=== PATIENT | female | born 1960 | race Two or more races ===

== ENCOUNTER 2020-12-10 09:25 | Outpatient (REF) | payer OTHER, SELFPAY ==
[2020-12-10 09:58] LABS: MANUAL DIFF FLAG NO
[2020-12-10 10:03] LABS: Basophils Percent Auto 0.5 % (0-2); Eosinophils Absolute Auto 0.1 X10*3/uL (0.0-0.4); Eosinophils Percent Auto 1.3 % (0-4); Hematocrit 40.7 % (37-47); Imm Gran Abs Auto 0.01 X10*3/uL (0.00-0.03); Imm Gran Pct Auto 0.2 % (0.0-0.4); Lymphocytes Absolute Auto 2.4 X10*3/uL (1.2-4.9); Mean Corpuscular HGB Conc 34.4 g/dl (31.0-35.0); Mean Corpuscular Hemoglobin 30.8 pg (27.0-33.0); Mean Corpuscular Volume 89.5 fL (80-98); Mean Platelet Volume 10.3 fL (9.4-12.3); Monocytes Absolute Auto 0.3 X10*3/uL (0.1-1.2); Monocytes Percent Auto 6.2 % (2-11); Neutrophils Absolute Auto 2.7 X10*3/uL (2.0-8.3); Neutrophils Percent Auto 48.8 % (45-73); Platelet Count 235 X10*3/uL (160-400); Red Blood Count 4.55 X10*6/uL (4.20-5.50); Red Cell Distribution Width 13.2 % (11.0-16.0); White Blood Count 5.5 X10*3/uL (4.8-10.8)
[2020-12-10 10:36] LABS: Alanine Aminotransferase 23 U/L (0-31); Albumin Level 4.5 g/dL (3.5-5.0); Alkaline Phosphatase 75 U/L (39-117); Anion Gap 12 (12-20); Aspartate Amino Transferase 16 U/L (5-31); Bilirubin Total 0.7 mg/dL (0.0-1.0); Blood Urea Nitrogen 14 mg/dL (9-16); Carbon Dioxide 28 mmol/L (22-29); Chloride 105 mmol/L (96-108); Cholesterol 267 mg/dL; Estimated Glomerular Filt Rate > 60; Glucose Fasting 135 mg/dL (60-99); HDL Cholesterol 41 mg/dL; LDL Cholesterol Calculated 162 mg/dl; Potassium 4.4 mmol/L (3.3-5.1); Sodium 141 mmol/L (135-145); Total Protein 7.3 g/dL (6.5-8.0); Triglycerides 323 mg/dL
[2020-12-10 10:57] LABS: Estimated Average Glucose 120 mg/dL; Hemoglobin A1c % 5.8 %
[2020-12-10 10:58] LABS: Thyroid Stimulating Hormone 3.85 uIU/mL (0.32-4.0)
== END 2020-12-10 09:26 | disposition home or self-care (01) ==
LOC: HO.LAB 09:25
PROVIDERS: Visit Provider Internal Medicine
DX: Z00.00 Encounter for general adult medical examination without abnormal findings (principal); E11.9 Type 2 diabetes mellitus without complications; E03.9 Hypothyroidism, unspecified
CPT/HCPCS: 36415; 80053; 80061; 83036; 84443; 85025

== ENCOUNTER 2021-05-05 10:15 | Outpatient (REF) | payer OTHER, SELFPAY ==
--- NOTE | ~2021-05-05 | XR_ITS ---
EXAMINATION: XR CHEST CLINICAL INFORMATION: Pleurodynia. COMPARISON: None TECHNIQUE: 2 views of the chest were obtained. FINDINGS: The lungs are clear. The cardiomediastinal silhouette is normal in size. There is no pleural effusion or pneumothorax. No acute osseous abnormality. XR/XR chest 2V IMPRESSION: No acute cardiopulmonary findings.
[2021-05-05 11:37] LABS: Cholesterol 268 mg/dL; HDL Cholesterol 44 mg/dL; Triglycerides 453 mg/dL
== END 2021-05-05 10:16 | disposition home or self-care (01) ==
LOC: HO.LAB 10:15
PROVIDERS: PCP Internal Medicine; Visit Provider Internal Medicine
DX: R07.81 Pleurodynia (principal); E11.9 Type 2 diabetes mellitus without complications
CPT/HCPCS: 36415; 71046; 80061

== ENCOUNTER → 2021-05-10 09:14 | Outpatient (BNVA) | payer OTHER, SELFPAY | PROVIDERS: PCP Internal Medicine Geriatric Medicine; Visit Provider Physician Assistant | DX: Z13.89 Encounter for screening for other disorder (principal) | CPT/HCPCS: 99203 ==

== ENCOUNTER 2021-05-12 10:27 | Outpatient (RCR) | payer OTHER, SELFPAY ==
--- NOTE | 2021-05-17 09:57 | MHC.PT.EP ---
[facility] [place] Office [place] [facility] [place] Office [address] [phone] F: [phone] F: [phone] F: [phone] F: [phone] Physical Therapy Plan of Care Date of Evaluation: Date of Surgery: Diagnosis: This is a 60 yo female presenting to skilled PT with a script for lumbar strain + L lat/chest wall strain Assessment: This is a 60 yo female presenting to skilled PT with a script for lumbar strain + L lat/chest wall strain. The patient reports that her pain started after she feel down 4 stairs at work on 05/03. She tried to grab the rail on the L and landed on her buttocks. Pain is located at the low back and across (L side is worse than R). She also has L side thoracic pain as well. This is described as constant and achy. She has been taking for naproxen and ice. Prior to the fall she had no back pain. She is still working and is now being seen by work connection (last appointment was yesterday). Patient was 45 mins late to appointment and was unable to be assessed at this time. Will continue assessment next session. Edit 05/17 patient called and cancelled her second visit and then will be going on vacation so not returning to our clinic until 05/31. Frequency and Duration: The patient will be seen 2x/wk for 6wks Short Term Goals: I in HEP Demo good squat mechanics without cuing from PT Demo ability to lay supine and sit with neutral posture Demo ability to perform appropriate transfers without cues Fdc Goals: Demos functional ROM and strength Improve oswestry by at least 10 points Improve pain at the worst to no more than 2/10 Demo proper lifting techniques without increase in pain or radiating symptoms Return to work in full Treatment Plan: Modalities to reduce pain, spasms and effusion. Manual therapy to restore motion and function. Therapeutic exercise to improve strength and flexibility. Neuromuscular re-education for posture and balance. Therapeutic activities to return to functional activities of daily living. Electronically signed by: Kia Cobb PT Please sign and return to therapist. Thank you for your referral.
--- NOTE | 2021-05-31 11:40 | MHC.PT.DC ---
[facility] [place] Office [place] Office [place] [facility] [address] [phone] F: [phone] F: [phone] F: [phone] F: [phone] Physical Therapy Discharge Report Diagnosis: This is a 60 yo female presenting to skilled PT with a script for lumbar strain + L lat/chest wall strain Date of Surgery: Date of Evaluation: 05/12/21 Date of Discharge: 05/31/21 Treatments to Date: 1 Cancellations to Date: 0 No Shows to Date: 0 Discharge Status: Visit Non-compliance Discharge Summary: This is a 60 yo female presenting to skilled PT with a script for lumbar strain + L lat/chest wall strain. The patient reports that her pain started after she feel down 4 stairs at work on 05/03. She tried to grab the rail on the L and landed on her buttocks. Pain is located at the low back and across (L side is worse than R). She also has L side thoracic pain as well. This is described as constant and achy. She has been taking for naproxen and ice. Prior to the fall she had no back pain. She is still working and is now being seen by work connection (last appointment was yesterday). Patient was 45 mins late to appointment and was unable to be assessed at this time. Will continue assessment next session. Patient proceeded to cancel and no show to remaining visits. DC due to visit noncompliance and per attendance policy. Electronically signed by: Kia Cobb PT Please sign and return to therapist. Thank you for your referral.
== END 2021-05-31 11:40 | disposition home or self-care (01) ==
LOC: HO.PTCHIC 10:27
PROVIDERS: PCP Internal Medicine Geriatric Medicine; Visit Provider Physician Assistant
DX: M54.5 Low back pain (principal); S29.011D Strain of muscle and tendon of front wall of thorax, subsequent encounter
CPT/HCPCS: 97110; 97162

== ENCOUNTER 2022-08-18 09:15 | Outpatient (REF) | payer OTHER, SELFPAY ==
[2022-08-18 11:48] LABS: Alanine Aminotransferase 24 U/L (0-31); Albumin Level 4.6 g/dL (3.5-5.0); Alkaline Phosphatase 78 U/L (39-117); Anion Gap 15 (12-20); Aspartate Amino Transferase 20 U/L (5-31); Bilirubin Total 0.8 mg/dL (0.0-1.0); Blood Urea Nitrogen 16 mg/dL (9-16); Calcium 9.2 mg/dL (8.4-10.2); Carbon Dioxide 29 mmol/L (22-29); Chloride 103 mmol/L (96-108); Cholesterol 274 mg/dL; Estimated Glomerular Filt Rate > 60; Glucose Fasting 143 mg/dL (60-99); HDL Cholesterol 38 mg/dL; LDL Cholesterol Calculated 172 mg/dl; Potassium 4.5 mmol/L (3.3-5.1); Sodium 142 mmol/L (135-145); Total Protein 7.3 g/dL (6.5-8.0); Triglycerides 323 mg/dL
== END 2022-08-18 09:16 | disposition home or self-care (01) ==
LOC: HO.HMGCLDS 09:15
PROVIDERS: PCP Internal Medicine; Visit Provider Internal Medicine
DX: E74.39 Other disorders of intestinal carbohydrate absorption (principal); E78.5 Hyperlipidemia, unspecified
CPT/HCPCS: 36415; 80053; 80061

== ENCOUNTER → 2022-08-22 15:59 | Outpatient (REF) | payer OTHER, SELFPAY ==
--- NOTE | 2022-08-22 16:02 | CA_ITS ---
Transthoracic Echocardiogram Patient (Last, First, Middle): Lula Little I Gender: Female Date of : 1960 Age: 61 Procedure Date: 08/22/2022 Procedure Type: Transthoracic Echocardiogram Location: OP Height: 160.02 cm Weight: 63.5 kg BSA: 1.66 m2 Heart Rate: bpm BP: 122 / 66 mmHg Professor Of Fine Art: Referring MD: Shanita Moncada MD Symptoms: R01.1 - Cardiac murmur, unspecified Study Quality: Adequate ECG Rhythm: Sinus Conclusions: - The left ventricular systolic function is normal. The calculated ejection fraction is 62% by biplane method. - No obvious valvular pathology seen on this study. Findings Left Ventricle Normal left ventricular cavity size. There is normal left ventricular wall thickness. The left ventricular systolic function is normal. The calculated ejection fraction is 62% by biplane method. There is no evidence of regional wall motion abnormalities. Diastolic function is normal for age. Right Ventricle Normal right ventricular cavity size and systolic function. Atria Both atria are normal in size. Aortic Valve There is a normal trileaflet aortic valve. There is no aortic valve stenosis. There is no aortic valve regurgitation. Mitral Valve The mitral valve appears normal. There is no mitral valve regurgitation. There is no mitral valve stenosis. Pulmonic Valve The pulmonic valve is likely normal. Tricuspid Valve Normal tricuspid valve structure. There is trace tricuspid valve regurgitation. There is no evidence of pulmonary hypertension. Great Vessels The aortic annulus, sinuses of valsalva, and asc aorta are normal in size. Venous The inferior vena cava is normal in size and collapses greater than 50% with inspiration. Pericardium/Pleural There is no evidence of pericardial effusion. Prior Study Comparison No prior study available for comparison. Recommendations, Care & Conclusions No obvious valvular pathology seen on this study. Measurements 2D Linear Measurements Ao Root: 2.90 2.1-3.5 cm LVOT Diam: 2.00 3.0+(-)1.3 cm 2D Systolic Function EF 4C: 55.90 >55% EF 2C: 69.40 >55% EF BiP: 62.00 >55% Mitral Valve MV Pk E: 0.58 MV PK A: 0.96 MV Decel Time: 247.00 E/A: 0.60 E'Lateral: 8.92 E'Medial: 7.62 E/E' Med: 7.60 E/E' Lat: 6.50 PHT: 72.00 MVA PHT: 3.06 Decel [place]: 2.35 Aortic Valve AoV Pk Thien: 1.15 AoV Mn Thien: 0.69 AoV VTI: 0.22 AoV Pk Grad: 5.00 Aov Mn Grad: 2.00 DUNCAN Cont.VTI: 2.90 LVOT LVOT Pk Thien: 1.01 LVOT Mn Thien: 0.64 LVOT VTI: 0.20 LVOT Pk Grad: 4.00 LVOT Mn Grad: 2.00 LVOT Diam: 2.00 LVOT Area: 3.14 Diastolic Function MV Pk E: 0.58 MV Pk A: 0.96 E/A: 0.60 E'Medial: 7.62 E/E' Med: 7.60 E' Laterial: 8.92 E/E' Lat: 6.50 Right Ventricle TAPSE (mm): 19.00 TVS' Thien: 7.00 Tricuspid Valve TR Pk Thien: 1.62 TR Pk Grad: 10.00 RA Press: 3.00 RVSP: 13.00 Great Vessels Aorta Ao Root-2D: 2.90 2.0-3.7 cm Ao Asc: 2.70 2.1-3.4 cm Pulmonary Valve PV Pk Thien: 0.80 Peak PV Grad: 3.00 Updated in Other Vendor System with Status of Final Ino López MD electronically signed on 08/23/2022 9:28:03 AM with status of Final
== END ==
LOC: HO.CARD 15:59
PROVIDERS: PCP Internal Medicine; Visit Provider Internal Medicine
DX: R01.1 Cardiac murmur, unspecified (principal)
CPT/HCPCS: 93306

== ENCOUNTER 2023-03-10 08:45 | Outpatient (REF) | payer OTHER, SELFPAY ==
[2023-03-10 11:07] LABS: MANUAL DIFF FLAG NO
[2023-03-10 11:12] LABS: Basophils Absolute Auto 0.1 X10*3/uL (0.0-0.2); Basophils Percent Auto 0.9 % (0-2); Eosinophils Absolute Auto 0.1 X10*3/uL (0.0-0.4); Eosinophils Percent Auto 1.8 % (0-4); Hematocrit 39.2 % (37.0-47.0); Hemoglobin 13.4 g/dl (12.0-16.0); Imm Gran Abs Auto 0.02 X10*3/uL (0.00-0.03); Imm Gran Pct Auto 0.3 % (0.0-0.4); Lymphocytes Absolute Auto 2.9 X10*3/uL (1.2-4.9); Lymphocytes Percent Auto 41.9 % (20-40); Mean Corpuscular HGB Conc 34.2 g/dl (31.0-35.0); Mean Corpuscular Hemoglobin 30.6 pg (27.0-33.0); Mean Corpuscular Volume 89.5 fL (80.0-98.0); Mean Platelet Volume 10.3 fL (9.4-12.3); Monocytes Absolute Auto 0.4 X10*3/uL (0.1-1.2); Neutrophils Absolute Auto 3.4 x10*3/uL (2.0-8.3); Neutrophils Percent Auto 49.1 % (45-73); Platelet Count 275 X10*3/uL (160-400); Red Blood Count 4.38 X10*6/uL (4.20-5.50); Red Cell Distribution Width 13.6 % (11.0-16.0); White Blood Count 6.9 X10*3/uL (4.8-10.8)
[2023-03-10 11:32] LABS: Alanine Aminotransferase 23 U/L (0-31); Albumin Level 4.4 g/dL (3.5-5.0); Alkaline Phosphatase 63 U/L (39-117); Anion Gap 10 (12-20); Aspartate Amino Transferase 17 U/L (5-31); Bilirubin Total 1.1 mg/dL (0.0-1.0); Blood Urea Nitrogen 15 mg/dL (9-16); Calcium 9.4 mg/dL (8.4-10.2); Carbon Dioxide 31 mmol/L (22-29); Chloride 105 mmol/L (96-108); Cholesterol 223 mg/dL; Estimated Glomerular Filt Rate > 60; Glucose Fasting 132 mg/dL (60-99); HDL Cholesterol 40 mg/dL; LDL Cholesterol Calculated 128 mg/dl; Potassium 4.3 mmol/L (3.3-5.1); Sodium 142 mmol/L (135-145); Total Protein 6.8 g/dL (6.5-8.0); Triglycerides 276 mg/dL
[2023-03-10 12:39] LABS: Folate 17.7 ng/mL (> or = 4.0); TSH reflex Free T4 2.28 uIU/mL (0.32-4.0); Vitamin B12 > 2000 pg/mL (200-900); Vitamin D 25-OH Total 58.9 ng/mL (>30)
== END 2023-03-10 08:46 | disposition home or self-care (01) ==
LOC: HO.HMGCLDS 08:45
PROVIDERS: PCP Internal Medicine; Visit Provider Nurse Practitioner Family
DX: E11.9 Type 2 diabetes mellitus without complications (principal); E78.5 Hyperlipidemia, unspecified; R51.9 Headache, unspecified
CPT/HCPCS: 36415; 80053; 80061; 82306; 82607; 82746; 84443; 85025

== ENCOUNTER 2023-03-12 08:54 | Outpatient (REF) | payer OTHER, SELFPAY ==
[2023-03-15 04:09] LABS: TS Negative Control Passed; TS Panel A 0; TS Panel B 0; TS Positive Control Passed; TSpotTB Negative (Negative)
== END 2023-03-12 08:55 | disposition home or self-care (01) ==
LOC: HO.HMGCLDS 08:54
PROVIDERS: PCP Internal Medicine; Visit Provider Nurse Practitioner Family
DX: Z11.1 Encounter for screening for respiratory tuberculosis (principal)
CPT/HCPCS: 36415; 86481

== ENCOUNTER 2023-04-25 13:08 | Outpatient (REF) | payer OTHER, SELFPAY ==
--- NOTE | ~2023-04-25 | MM_ITS ---
EXAMINATION: MM SCREENING DIGITAL BREAST TOMOSYNTHESIS, BILATERAL CLINICAL INFORMATION: Screening. Asymptomatic. The lifetime risk of breast cancer based on the Tyrer-Cuzick Model is 4%. COMPARISON: Mammography: This study is compared with prior exams dating back to 2017. TECHNIQUE: Digital breast tomosynthesis is performed in both the craniocaudal and mediolateral oblique views along with computer-aided detection (CAD). Synthesized 2D images are generated from the tomosynthesis. FINDINGS: There are scattered areas of fibroglandular density (ACR BI-RADS breast composition Category b). There are no significant masses, abnormal calcifications, or other abnormalities. MM/MM tomosynthesis screening BI IMPRESSION: No mammographic evidence of malignancy. ASSESSMENT: BI-RADS BI-RADS 1 - Negative RECOMMENDATION: Routine annual mammography screening. 1 year F/U This examination should not preclude the clinical evaluation of a suspicious palpable abnormality. This patient's information was entered into a reminder system with a target due date for their next mammogram.
== END 2023-04-25 13:09 | disposition home or self-care (01) ==
LOC: HO.MAMMO 13:08
PROVIDERS: PCP Internal Medicine; Visit Provider Nurse Practitioner Family
DX: Z12.31 Encounter for screening mammogram for malignant neoplasm of breast (principal)
CPT/HCPCS: 77063; 77067

== ENCOUNTER → 2023-04-25 13:15 | Outpatient (BNV) | payer OTHER, SELFPAY | PROVIDERS: PCP Internal Medicine; Visit Provider Radiology Diagnostic Radiology | DX: Z12.31 Encounter for screening mammogram for malignant neoplasm of breast (principal) | CPT/HCPCS: 77063; 77067 ==

== ENCOUNTER 2023-06-04 12:59 | Outpatient (REF) | payer OTHER, SELFPAY ==
--- NOTE | ~2023-06-04 | CT_ITS ---
EXAMINATION: CT HEAD WITHOUT CONTRAST CLINICAL INFORMATION: Headache COMPARISON: None available. TECHNIQUE: Contiguous axial imaging was performed from the skull base to vertex without intravenous administration of contrast. This CT examination was performed using dose optimization techniques as appropriate, variously including the following: *Automated exposure control *Adjustment of mA and/or kV according to patient size (this includes techniques or standardized protocols for targeted exams where dose is matched to indication/reason for exam; i.e. extremities or head) *Use of iterative reconstruction technique DLP: 641 mGy-cm FINDINGS: There is no evidence of an extra-axial collection. There is no evidence of intra or extra-axial hemorrhage. The ventricles and extra-axial CSF spaces are appropriate. Torres-white matter adjacent normal. No mass, mass effect or infarct. There is sinus disease in the left maxillary and sphenoid sinus. Visualized paranasal sinuses, mastoid air cells and middle ears are otherwise clear. CT/CT head/brain wo IV con IMPRESSION: No acute intracranial findings. Sinus disease.
== END 2023-06-04 13:00 | disposition home or self-care (01) ==
LOC: HO.CT 12:59
PROVIDERS: PCP Internal Medicine; Visit Provider Nurse Practitioner Family
DX: R51.9 Headache, unspecified (principal)
CPT/HCPCS: 70450

== ENCOUNTER 2023-06-14 17:14 | Outpatient (AMB) | payer OTHER, SELFPAY ==
[2023-06-14 17:21] VITALS: BP 120/82; BMI 24.7
--- NOTE | 2023-06-14 17:21 | A.OFFPC_ITS ---
Vital Signs 06/14/23 17:21 Height 5 ft 2 in Weight 135 lb BMI 24.7 BP 120/82 Blood Pressure Location Lt brachial Position Sitting Intake Visit Reasons: HLD, DM Intake Note: Patient here for HLD, DM Otorhinolaryngologist Required: No Accompanied by: Self / Same As Patient Allergies acetaminophen [From Percocet] Allergy (Mild, Verified 06/14/23 17:30) Rash oxycodone [From Percocet] Allergy (Mild, Verified 06/14/23 17:30) Rash Medication List - Last Reconciled 06/14/23 by Shanita Moncada MD ezetimibe (Zetia) 10 mg PO DAILY glipizide ER 2.5 mg PO DAILY Tobacco use date assessed: 03/09/23 Fall risk assessment: No Falls in past year Last assessed Fall Risk: 06/14/23 Dental Screening Dental Screen Date: 06/14/23 Did you have a dental visit in the last 12 months?: Yes Did you have a dental problem in the last 6 months where you did not have access to dental care?: No Was dental information given to patient?: Patient has dentist HPI HPI Comments History of Present Illness Details This is a 62 year old female with diabetes mellitus type 2 and hyperlipidemia that complaints of headaches in either left or right frontal area. A1c within goal. Last LDL was not on goal and this john be repeated. No chest pain or shortness of breath. She also has chronic sinusitis and will give antihistamines for that. [facility] Medical History (Updated 06/15/23 @ 13:47 by Shanita Moncada MD) Glucose intolerance Hyperlipidemia Surgical History History of hysterectomy Family History Father CAD (coronary artery disease) Mother CAD (coronary artery disease) Social History Housing: Apartment Alcohol intake: never Patient Tobacco Use Status: Never used Tobacco e-Cigarette/Vaping Use: Never Used Second Hand Smoke Exposure: No service: No Current occupational status: disabled Cognitive needs: No Hearing needs: No Vision needs: Yes Questionnaire Thrive Questionnaire Date Thrive assessed: 03/09/23 FRANCIS-7 AMB Questionnaire FRANCIS-7 Date FRANCIS - 7 assessed: 03/09/23 Source: Developed by Drs. Chapincito Cruz, Mary Rodriguez, Aditya Akins and colleagues, with an educational justine from [employer]. Review of Systems Const All systems reviewed & are unremarkable except as noted in HPI and below Eyes Reports no additional complaints, Denies change in vision and Denies other visual disturbances Card Denies chest pain at rest, Denies chest pain with activity, Denies edema, Denies irregular heart rhythm, Denies claudication, Denies dyspnea, Denies dyspnea on exertion, Denies orthopnea, Denies paroxysmal nocturnal dyspnea and Denies slow heart rate Resp Denies cough, Denies dyspnea and Denies dyspnea on exertion GI Denies abdominal pain, Denies change in bowel habits, Denies excessive flatus, Denies nausea and Denies vomiting Denies urinary incontinence, Denies urinary hesitancy and Denies urinary urgency Musc Denies abnormal gait, Denies atrophy, Denies deformity and Denies limited range of motion Skin/Breast Denies bleeding lesions, Denies changing lesions and Denies rash Neuro Denies abnormal gait and Denies lack of coordination Physical exam (Primary Care) Vital Signs: Last Vital Signs BP 120/82 06/14/23 17:21 BMI result Body Mass Index 24.7 Tobacco/Smoking Status: Tobacco use Status Tobacco use date assessed 03/09/23 06/14/23 17:25 Patient Tobacco Use Status Never used Tobacco 06/14/23 17:25 e-Cigarette/Vaping Use Never Used 06/14/23 17:25 Thrive Assessment: Date of Thrive Assessment Date Thrive assessed 03/09/23 06/14/23 17:25 Eyes General: appearance normal, both eyes and all related structures Eyelids: Yes eyelids normal Conjunctivae: conjunctivae normal Neck Neck: Yes normal visual inspection and Yes supple Resp Effort & Inspection: normal respiratory effort Auscultation: clear to auscultation bilaterally Cardio Jugular venous distension: no JVD Rate: regular rate Rhythm: regular rhythm Heart sounds: S1 normal heart sound present and S2 normal heart sound present Extrem General: Yes full ROM Results AMB Hemoglobin A1c AMB Hemoglobin A1c 5.9 % Last Edit by MARIBELL Monsalve on 06/14/23 17:4 0 Results Reviewed Results Reviewed: Laboratory Last Values Hgb A1c (Clinic) 5.9 % (4.0-6.0) 06/14/23 17:37 Assessment and Plan Assessment & Plan (1) Diabetes mellitus: Code(s): E11.9 - Type 2 diabetes mellitus without complications Plan: Continue glipizide. A1c goal is equal or less than 7%. (2) Hyperlipidemia LDL goal <70: Code(s): E78.5 - Hyperlipidemia, unspecified Plan: Continue Zetia. LDL goal is less than 70 (3) Headache: Code(s): R51.9 - Headache, unspecified Plan: Start sumatiptan prn. (4) Chronic sinusitis: Code(s): J32.9 - Chronic sinusitis, unspecified Plan: Start antihistamines prn. Orders: Orders Comprehensive [place]. Panel Fast 4 Months E78.5 - Hyperlipidemia, unspecified Lipid Panel 4 Months E78.5 - Hyperlipidemia, unspecified Complete Blood Count Auto Diff 06/14/23 D64.9 - Anemia, unspecified, R51.9 - Headache, unspecified AMB Hemoglobin A1c 06/14/23 E11.9 - Type 2 diabetes mellitus without complications Medications: New sumatriptan succinate do not exceed 8 doses per 24 hrs 25 mg PO Q2-4H 30 days PRN 9 tabs 1RF migraine headache cetirizine (All Day Allergy (cetirizine)) 10 mg PO DAILY 90 days PRN 90 tabs 1RF allergy symptoms Coding Level of Care Code Est Pt Level 4 (86833) Diagnoses Diabetes mellitus E11.9 Hyperlipidemia LDL goal <70 E78.5 Headache R51.9 Chronic sinusitis J32.9 Time Spent (min) 20
== END 2023-06-14 17:41 | disposition home or self-care (01) ==
PROVIDERS: PCP Internal Medicine; Visit Provider Internal Medicine
DX: E11.9 Type 2 diabetes mellitus without complications (principal)
CPT/HCPCS: 83036; 99214

== ENCOUNTER 2023-08-22 16:31 | Outpatient (AMB) | payer OTHER, SELFPAY ==
[2023-08-22 16:34] VITALS: BP 136/82; PULSE 66; O2SAT 99; BMI 25.1
--- NOTE | 2023-08-22 16:34 | A.OFFPC_ITS ---
Vital Signs 08/22/23 16:34 Height 5 ft 2 in Weight 137 lb BMI 25.1 BP 136/82 Blood Pressure Location Lt brachial Position Sitting Pulse 66 Pulse Source Pulse Oximeter Pulse Oximetry (%) 99 Oxygen Delivery Method Room Air Intake Visit Reasons: dm Intake Note: patient here for a follow up DM Pipe Testing Technician Required: No Accompanied by: Self / Same As Patient Allergies acetaminophen [From Percocet] Allergy (Mild, Verified 08/22/23 16:43) Rash ezetimibe Allergy (Mild, Verified 08/22/23 16:48) rash oxycodone [From Percocet] Allergy (Mild, Verified 08/22/23 16:43) Rash Medication List - Last Reconciled 08/22/23 by Shanita Moncada MD cetirizine (All Day Allergy (cetirizine)) 10 mg PO DAILY PRN 90 days cromolyn 4% 1 drp ophthalmic (eye) QID 7 days ezetimibe (Zetia) 10 mg PO DAILY glipizide ER 2.5 mg PO DAILY sumatriptan succinate 25 mg PO Q2-4H PRN 30 days Tobacco use date assessed: 03/09/23 Fall risk assessment: No Falls in past year Last assessed Fall Risk: 08/22/23 Dental Screening Dental Screen Date: 08/22/23 Did you have a dental visit in the last 12 months?: Yes Did you have a dental problem in the last 6 months where you did not have access to dental care?: No Was dental information given to patient?: Patient has dentist HPI HPI Comments History of Present Illness Details This is a 62 year old female with diabetes mellitus type 2, hyperlipidemia, migraines and allergic rhinitis that comes for follow up on her conditions. A1c is within goal. LDL not on goal. Dietary changes were advised. Allergic rhinitis is stable with cetirizine. Migraines stable with sumatriptan as needed. No chest pain or shortness of breath. COUNTS INCLUDE 234 BEDS AT THE [facility] Medical History (Updated 08/24/23 @ 13:13 by Shanita Moncada MD) Hyperlipidemia Glucose intolerance Surgical History History of hysterectomy Family History Father CAD (coronary artery disease) Mother CAD (coronary artery disease) Social History Housing: Apartment Alcohol intake: never Patient Tobacco Use Status: Never used Tobacco e-Cigarette/Vaping Use: Never Used Second Hand Smoke Exposure: No service: No Current occupational status: disabled Cognitive needs: No Hearing needs: No Vision needs: Yes Questionnaire Thrive Questionnaire Date Thrive assessed: 03/09/23 FRANCIS-7 AMB Questionnaire FRANCIS-7 Date FRANCIS - 7 assessed: 03/09/23 Source: Developed by Drs. Chapincito Cruz, Mary Rodriguez, Aditya Akins and colleagues, with an educational justine from [employer]. Review of Systems Const All systems reviewed & are unremarkable except as noted in HPI and below Eyes Reports no additional complaints, Denies change in vision and Denies other visual disturbances Card Denies chest pain at rest, Denies chest pain with activity, Denies edema, Denies irregular heart rhythm, Denies claudication, Denies dyspnea, Denies dyspnea on exertion, Denies orthopnea, Denies paroxysmal nocturnal dyspnea and Denies slow heart rate Resp Denies cough, Denies dyspnea and Denies dyspnea on exertion GI Denies abdominal pain, Denies change in bowel habits, Denies excessive flatus, Denies nausea and Denies vomiting Denies urinary incontinence, Denies urinary hesitancy and Denies urinary urgency Musc Denies abnormal gait, Denies atrophy, Denies deformity and Denies limited range of motion Skin/Breast Denies bleeding lesions, Denies changing lesions and Denies rash Neuro Denies abnormal gait and Denies lack of coordination Physical exam (Primary Care) Vital Signs: Last Vital Signs Pulse 66 08/22/23 16:34 BP 136/82 08/22/23 16:34 Pulse Ox 99 08/22/23 16:34 Oxygen Delivery Method Room Air 08/22/23 16:34 BMI result Body Mass Index 25.1 Tobacco/Smoking Status: Tobacco use Status Tobacco use date assessed 03/09/23 08/22/23 16:38 Patient Tobacco Use Status Never used Tobacco 08/22/23 16:38 e-Cigarette/Vaping Use Never Used 08/22/23 16:38 Thrive Assessment: Date of Thrive Assessment Date Thrive assessed 03/09/23 08/22/23 16:38 Eyes General: appearance normal, both eyes and all related structures Eyelids: Yes eyelids normal Conjunctivae: conjunctivae normal Neck Neck: Yes normal visual inspection and Yes supple Resp Effort & Inspection: normal respiratory effort Auscultation: clear to auscultation bilaterally Cardio Jugular venous distension: no JVD Rate: regular rate Rhythm: regular rhythm Heart sounds: S1 normal heart sound present and S2 normal heart sound present Extrem General: Yes full ROM Office Procedures Flu Questionnaire Does the patient have a severe egg allergy?: No Immunizations flu vacc [id number] 6mos up(PF) 60 mcg(15 mcgx4)/0.5 mL IM syringe Performing Provider: Shanita Moncada MD [facility] Documented (not given) by: MARIBELL Monsalve on 08/22/23 16:55 Reason Not Given: Patient Refused Assessment and Plan Assessment & Plan (1) Diabetes mellitus: Code(s): E11.9 - Type 2 diabetes mellitus without complications Plan: Continue glipizide. A1c goal is equal or less than 7 %. (2) Hyperlipidemia LDL goal <70: Code(s): E78.5 - Hyperlipidemia, unspecified Plan: Continue Zetia. LDL goal is less than 70. (3) Migraines: Code(s): G43.909 - Migraine, unspecified, not intractable, without status migrainosus Plan: Continue sumatriptan prn. (4) Allergic rhinitis: Code(s): J30.9 - Allergic rhinitis, unspecified Plan: Continue cetirizine prn. Orders: Orders Lipid Panel 08/22/23 E78.5 - Hyperlipidemia, unspecified Comprehensive [place]. Panel Fast 08/22/23 E78.5 - Hyperlipidemia, unspecified Influenza [id number] Immunization 08/22/23 Z23 - Encounter for immunization [place] upper GI series 08/22/23 K21.9 - Gastro-esophageal reflux disease without esophagitis Medications: New omeprazole 20 mg PO DAILY 90 days 90 caps 1RF rosuvastatin 5 mg PO DAILY 90 days 90 tabs 1RF Coding Level of Care Code Est Pt Level 4 (31638) Diagnoses Diabetes mellitus E11.9 Hyperlipidemia LDL goal <70 E78.5 Migraines G43.909 Allergic rhinitis J30.9 Time Spent (min) 23
== END 2023-08-22 16:53 | disposition home or self-care (01) ==
PROVIDERS: PCP Internal Medicine; Visit Provider Internal Medicine
DX: E11.9 Type 2 diabetes mellitus without complications (principal); E78.5 Hyperlipidemia, unspecified; G43.909 Migraine, unspecified, not intractable, without status migrainosus; J30.9 Allergic rhinitis, unspecified
CPT/HCPCS: 99214

== ENCOUNTER 2023-11-07 16:02 | Outpatient (AMB) | payer MEDICAID, SELFPAY ==
[2023-11-07 16:06] VITALS: BP 130/82; BMI 24.9
--- NOTE | 2023-11-07 16:06 | A.OFFPC_ITS ---
Vital Signs 11/07/23 16:06 Height 5 ft 2 in Weight 136 lb BMI 24.9 BP 130/82 Blood Pressure Location Lt brachial Position Sitting Intake Visit Reasons: ongoing cough, ? of asthma Intake Note: Patient here for ongoing cough going on for more than a month, ? 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 Required: No Accompanied by: Self / Same As Patient Allergies acetaminophen [From Percocet] Allergy (Mild, Verified 11/07/23 16:26) Rash ezetimibe Allergy (Mild, Verified 11/07/23 16:26) rash oxycodone [From Percocet] Allergy (Mild, Verified 11/07/23 16:26) Rash Medication List - Last Reconciled 11/07/23 by Shanita Moncada MD albuterol sulfate 90 mcg/actuation (Ventolin HFA) 2 puffs inhalation Q6H PRN ezetimibe (Zetia) 10 mg PO DAILY glipizide ER 2.5 mg PO DAILY omeprazole 20 mg PO DAILY 90 days rosuvastatin 5 mg PO DAILY 90 days sumatriptan succinate 25 mg PO Q2-4H PRN 30 days Tobacco use date assessed: 11/07/23 Fall risk assessment: No Falls in past year Last assessed Fall Risk: 11/07/23 Dental Screening Dental Screen Date: 11/07/23 Did you have a dental visit in the last 12 months?: Yes Did you have a dental problem in the last 6 months where you did not have access to dental care?: No Was dental information given to patient?: Patient has dentist HPI HPI Comments History of Present Illness Details This is a 63-year-old female with diabetes mellitus type 2, hyperlipidemia and GERD that comes today complaining of a cough that has been present about a month ago after she had a cold and has not gone away. The cough is dry and is associated with some shortness of breath and wheezing requiring her rescue inhaler more times. No fever. I will add a long-acting inhaler and give a short course of prednisone to see if the cough improves. A1c within goal. Last LDL was not on goal and this will be repeated. GERD stable with PPIs. [facility] Medical History (Updated 11/07/23 @ 16:31 by Shanita Moncada MD) Hyperlipidemia Glucose intolerance Surgical History History of hysterectomy Family History Father CAD (coronary artery disease) Mother CAD (coronary artery disease) Social History Housing: Apartment Alcohol intake: never Patient Tobacco Use Status: Never used Tobacco e-Cigarette/Vaping Use: Never Used Second Hand Smoke Exposure: No service: No Current occupational status: disabled Cognitive needs: No Hearing needs: No Vision needs: Yes Questionnaire PHQ-9 Over the last 2 weeks, how often have you been bothered by any of the following problems? 1. Little interest or pleasure in doing things: not at all 2. Feeling down, depressed, or hopeless: not at all 3. Trouble falling or staying asleep, or sleeping too much: not at all 4. Feeling tired or having little energy: not at all 5. Poor appetite or overeating: not at all 6. Feeling bad about yourself - or that you are a failure or have let yourself or your family down: not at all 7. Trouble concentrating on things, such as reading the newspaper or watching television: not at all 8. Moving or speaking so slowly that other people could have noticed. Or the op posite - being so fidgety or restless that you have been moving around a lot more than usual: not at all 9. Thoughts that you would be better off or of hurting yourself in some way: not at all Total score: 0 Depression Screening Interpretation: Negative Depression Screening Done: Yes 92356 - PHQ-9 Billing: Yes Source: Developed by Drs. Chapincito Cruz, Mary Rodriguez, Aditya Akins and colleagues, with an educational justine from [employer]. Thrive Questionnaire Date Thrive assessed: 11/07/23 I am a: Patient What is your living situation today?: I have a steady place to live Within the past 12 months, did the food you bought not last and you didn't have the money to get more?: Never true Within the past 12 months, did you worry whether your food would run out before you got money to buy more?: Never true Do you have trouble paying for medicines?: No Do you have trouble getting transportation to medical appointments?: No Do you have trouble paying your heating and electricity bill?: No Do you have trouble taking care of your child, family member or friend?: No Do you have trouble with day-to-day activities such as bathing, preparing meals, shopping, managing finances, etc.?: No Are you currently unemployed and looking for a job?: No Are you interested in more education?: No Please select the resources that you would like help with: None AUDIT C Alcohol Use Questionnaire (AUDIT-C) 1. How often do you have a drink containing alcohol?: Monthly or less 2. How many drinks containing alcohol do you have on a typical day when you are drinking?: 1 or 2 3. How often do you have six or more drinks on one occasion?: Never Total Score: 1 FRANCIS-7 AMB Questionnaire FRANCIS-7 Date FRANCIS - 7 assessed: 11/07/23 Feeling nervous, anxious, or on edge: 1 = Several days Not being able to stop or control worryin = Not at all Worrying too much about different things: 1 = Several days Trouble relaxin = Not at all Being so restless that it is hard to sit still: 0 = Not at all Becoming easily annoyed or irritable: 0 = Not at all Feeling afraid as if something awful might happen: 0 = Not at all Total FRANCIS-7 score (0-4 normal; 5-9 mild; 10-14 moderate; 15-21 severe): 2 Source: Developed by Drs. Chapincito Cruz, Mary Rodriguez, Aditya Akins and colleagues, with an educational justine from [employer]. FRANCIS-7 Assessment Billing FRANCIS-7 Assessment Tool: FRANCIS-7 Assessment 73362 Review of Systems Const All systems reviewed & are unremarkable except as noted in HPI and below Eyes Reports no additional complaints, Denies change in vision and Denies other visual disturbances Card Denies chest pain at rest, Denies chest pain with activity, Denies edema, Denies irregular heart rhythm, Denies claudication, Denies dyspnea, Denies dyspnea on exertion, Denies orthopnea, Denies paroxysmal nocturnal dyspnea and Denies slow heart rate Resp Denies cough, Denies dyspnea and Denies dyspnea on exertion GI Denies abdominal pain, Denies change in bowel habits, Denies excessive flatus, Denies nausea and Denies vomiting Denies urinary incontinence, Denies urinary hesitancy and Denies urinary urgency Musc Denies abnormal gait, Denies atrophy, Denies deformity and Denies limited range of motion Skin/Breast Denies bleeding lesions, Denies changing lesions and Denies rash Neuro Denies abnormal gait, Denies behavioral changes and Denies lack of coordination Psych Denies behavioral changes Physical exam (Primary Care) Vital Signs: Last Vital Signs BP 130/82 11/07/23 16:06 BMI result Body Mass Index 24.9 Tobacco/Smoking Status: Tobacco use Status Tobacco use date assessed 11/07/23 11/07/23 16:15 Patient Tobacco Use Status Never used Tobacco 11/07/23 16:09 e-Cigarette/Vaping Use Never Used 11/07/23 16:09 PHQ-9: PHQ-9 Score PHQ-9: Total score 0 11/07/23 17:39 Depression Screening Interpretation: Negative Thrive Assessment: Date of Thrive Assessment Date Thrive assessed 11/07/23 11/07/23 16:15 Eyes General: appearance normal, both eyes and all related structures Eyelids: Yes eyelids normal Conjunctivae: conjunctivae normal Neck Neck: Yes normal visual inspection and Yes supple Resp Effort & Inspection: normal respiratory effort Auscultation: wheezes Cardio Jugular venous distension: no JVD Rate: regular rate Rhythm: regular rhythm Heart sounds: S1 normal heart sound present and S2 normal heart sound present Extrem General: Yes full ROM Results AMB Hemoglobin A1c AMB Hemoglobin A1c 6.1 % Last Edit by MARIBELL Monsalve on 11/07/23 16:2 8 Results Reviewed Results Reviewed: Laboratory Last Values Hgb A1c (Clinic) 6.1 % (4.0-6.0) H 11/07/23 16:06 Assessment and Plan Assessment & Plan (1) Cough: Code(s): R05.9 - Cough, unspecified Plan: Start prednisone. Start long-acting inhaler. (2) Hyperlipidemia LDL goal <70: Code(s): E78.5 - Hyperlipidemia, unspecified Plan: Continue statins and Zetia. LDL goal is less than 70. (3) Diabetes mellitus: Code(s): E11.9 - Type 2 diabetes mellitus without complications Plan: Continue glipizide. A1c goal is equal or less than 7%. (4) GERD (gastroesophageal reflux disease): Code(s): K21.9 - Gastro-esophageal reflux disease without esophagitis Plan: Continue PPIs. Orders: Orders AMB Hemoglobin A1c Today E11.9 - Type 2 diabetes mellitus without complications XR chest 2V Today R05.9 - Cough, unspecified Lipid Panel Today E78.5 - Hyperlipidemia, unspecified Comprehensive [place]. Panel Fast Today R05.9 - Cough, unspecified Medications: New fluticasone furoate 50 mcg/actuation (Arnuity Ellipta) 1 inh inhalation DAILY 30 ea 2RF 30 days prednisone Take 4 tabs for 2 days, then 3 tabs for 2 days, then 2 tabs for 2 days, then 1 tab for 2 days 10 mg PO DIRECTED 20 tabs 0RF 8 days Coding Level of Care Code Est Pt Level 4 (11604) Diagnoses Cough R05.9 Hyperlipidemia LDL goal <70 E78.5 Diabetes mellitus E11.9 GERD (gastroesophageal reflux disease) K21.9 Additional Codes FRANCIS-7 Assessment Billing - FRANCIS-7 Assessment Tool: FRANCIS-7 Assessment [id number] ([id number]) Time Spent (min) 24
== END 2023-11-07 16:34 | disposition home or self-care (01) ==
PROVIDERS: PCP Internal Medicine; Visit Provider Internal Medicine
DX: R05.9 Cough, unspecified (principal); E78.5 Hyperlipidemia, unspecified; E11.9 Type 2 diabetes mellitus without complications; K21.9 Gastro-esophageal reflux disease without esophagitis
CPT/HCPCS: 83036; 99214

== ENCOUNTER 2023-11-09 07:56 | Outpatient (REF) | payer SELFPAY ==
--- NOTE | ~2023-11-09 | FL_ITS ---
EXAMINATION: XR FLUOROSCOPY UPPER GI WITH AIR CLINICAL INFORMATION: Reflux COMPARISON: None TECHNIQUE: Fluoroscopic air contrast upper GI examination was performed utilizing standard techniques with thin and thick barium and effervescent granules. Numerous spot images were obtained. FINDINGS: Lateral cine images of the oropharynx and hypopharynx demonstrate normal swallow mechanism with normal epiglottic inversion and soft palate elevation. No tracheal penetration, glottic or subglottic aspiration identified. No nasopharyngeal reflux present. Hypopharyngeal structures appear normal without evidence of mass or diverticulum. There was no significant cricopharyngeal achalasia. Dual and single contrast images of the esophagus demonstrate normal caliber, contour, and mucosal pattern. No evidence of stricture, mass, or ulcerations identified. Primary esophageal peristalsis was normal. Mild disorganized tertiary contractions are seen. A wide open Schatzki's ring is present. A small type I hiatal hernia is present. No significant gastroesophageal reflux was seen during the course of the examination and on reflux views. Dual contrast and single contrast images of the stomach demonstrated normal contour. The gastric mucosal folds appear mildly thickened. No mass, ulceration, or other abnormality is seen. Contrast freely passed into the gastric antrum and duodenal bulb without delay. Single and air-contrast images of the duodenal bulb demonstrate no abnormality. The duodenal sweep has a normal appearance, course, and mucosal fold appearance. No malrotation. The imaged proximal jejunum has a normal fold pattern and caliber. FLUOROSCOPY TIME: 3 minutes 38 seconds Number of Spot Images: 12 Number of Cine: 7 DOSE AREA PRODUCT: 2571 uGy-m2 (microgray-meter squared) FL/FL upper GI series IMPRESSION: 1. Mildly disorganized esophageal peristalsis. 2. Schatzki's ring, does not appear obstructing and is wide open. 3. Small type I hiatal hernia 4. Mildly thickened gastric mucosal folds, possibly secondary to gastritis. Recommend correlation with EGD. This procedure was performed by Maurice Ponce PA-C, and supervised by Dr. Garcia
--- NOTE | ~2023-11-09 | XR_ITS ---
EXAMINATION: XR CHEST CLINICAL INFORMATION: Cough, unspecified. COMPARISON: Chest of 05/05/2021. TECHNIQUE: 2 views of the chest were obtained. FINDINGS: There is no gross pneumothorax. Heart size is normal. No pleural effusion. Moderate degenerative changes in the thoracic spine. No focal consolidation to suggest pneumonia.. XR/XR chest 2V IMPRESSION: No evidence of pneumonia.
== END 2023-11-09 07:57 | disposition home or self-care (01) ==
LOC: HO.XRAY 07:56
PROVIDERS: PCP Internal Medicine; Visit Provider Internal Medicine
DX: K21.9 Gastro-esophageal reflux disease without esophagitis (principal); R05.9 Cough, unspecified
CPT/HCPCS: 71046; 74240

== ENCOUNTER → 2023-11-09 07:57 | Outpatient (BNV) | payer MEDICAID, SELFPAY | PROVIDERS: PCP Internal Medicine; Visit Provider Radiology Diagnostic Radiology | DX: K21.9 Gastro-esophageal reflux disease without esophagitis (principal) | CPT/HCPCS: 74246 ==

== ENCOUNTER 2024-03-26 13:57 | Outpatient (AMB) | payer MEDICARE, MEDICAID, SELFPAY ==
--- NOTE | 2024-03-26 14:02 | MHC.PC.OV ---
Vital Signs 03/26/24 14:05 Height 5 ft 2 in Weight 140 lb BMI 25.6 BP 114/80 Blood Pressure Location Lt brachial Position Sitting Intake Visit Reasons: follow up Intake Note: Patient here for a follow up Element Burner Required: No Accompanied by: Self / Same As Patient Allergies acetaminophen [From Percocet] Allergy (Mild, Verified 03/26/24 14:20) Rash ezetimibe Allergy (Mild, Verified 03/26/24 14:20) rash oxycodone [From Percocet] Allergy (Mild, Verified 03/26/24 14:20) Rash Medication List - Last Reconciled 03/26/24 by Shanita Moncada MD albuterol sulfate 90 mcg/actuation (Ventolin HFA) 2 puffs inhalation Q6H PRN fluticasone furoate 50 mcg/actuation (Arnuity Ellipta) 1 inh inhalation DAILY 30 days glipizide ER 2.5 mg PO DAILY omeprazole 20 mg PO DAILY 90 days rosuvastatin 5 mg PO DAILY 90 days sumatriptan succinate 25 mg PO Q2-4H PRN 30 days Tobacco use date assessed: 11/07/23 Fall risk assessment: No Falls in past year Last assessed Fall Risk: 03/26/24 Dental Screening Dental Screen Date: 11/07/23 HPI HPI Comments History of Present Illness Details This is a 63-year-old female with diabetes mellitus type 2, GERD, and hyperlipidemia that comes today complaining of abdominal pain associated with diarrhea that started yesterday. No fever. A1c within goal. Last LDL was not on goal and this will be repeated. GERD is not stable with omeprazole I will change it to pantoprazole. She has been on omeprazole for over 90 days. She has an abnormal upper GI series and was referred to Gastroenterology in 10/2023 but did not had insurance by then and I will refer her again to Gastroenterology. [facility] Medical History (Updated 03/26/24 @ 18:44 by Shanita Moncada MD) Hyperlipidemia Glucose intolerance Surgical History History of hysterectomy Family History Father CAD (coronary artery disease) Mother CAD (coronary artery disease) Social History Housing: Apartment Alcohol intake: never Patient Tobacco Use Status: Never used Tobacco e-Cigarette/Vaping Use: Never Used Second Hand Smoke Exposure: No service: No Current occupational status: disabled Cognitive needs: No Hearing needs: No Vision needs: Yes Questionnaire Thrive Questionnaire Date Thrive assessed: 11/07/23 FRANCIS-7 AMB Questionnaire FRANCIS-7 Date FRANCIS - 7 assessed: 11/07/23 Source: Developed by Drs. Chapincito Crzu, Mary Rodriguez, Aditya Akins and colleagues, with an educational justine from [employer]. Review of Systems Const All systems reviewed & are unremarkable except as noted in HPI and below Card Denies chest pain at rest, Denies chest pain with activity, Denies edema, Denies irregular heart rhythm, Denies claudication, Denies dyspnea, Denies dyspnea on exertion, Denies orthopnea, Denies paroxysmal nocturnal dyspnea and Denies slow heart rate Resp Denies cough, Denies dyspnea and Denies dyspnea on exertion GI Reports abdominal pain, Reports diarrhea, Reports nausea and Reports vomiting Physical exam (Primary Care) Vital Signs: Last Vital Signs BP 114/80 03/26/24 14:05 BMI result Body Mass Index 25.6 Tobacco/Smoking Status: Tobacco use Status Tobacco use date assessed 11/07/23 03/26/24 14:03 Patient Tobacco Use Status Never used Tobacco 03/26/24 14:03 e-Cigarette/Vaping Use Never Used 03/26/24 14:03 Thrive Assessment: Date of Thrive Assessment Date Thrive assessed 11/07/23 03/26/24 14:03 Resp Effort & Inspection: normal respiratory effort Auscultation: clear to auscultation bilaterally Cardio Jugular venous distension: no JVD Rate: regular rate Rhythm: regular rhythm Heart sounds: S1 normal heart sound present and S2 normal heart sound present Extrem General: Yes full ROM Results AMB Hemoglobin A1c AMB Hemoglobin A1c 6.2 % Last Edit by MARIBELL Monsalve on 03/26/24 14:13 Results Reviewed Results Reviewed: Laboratory Last Values Hgb A1c (Clinic) 6.2 % (4.0-6.0) H 03/26/24 14:00 Assessment and Plan Assessment & Plan (1) Abnormal UGI series: Code(s): R93.3 - Abnormal findings on diagnostic imaging of other parts of digestive tract Plan: Referred to Gastroenterology. (2) GERD (gastroesophageal reflux disease): Code(s): K21.9 - Gastro-esophageal reflux disease without esophagitis Plan: Discontinue omeprazole. Start pantoprazole. (3) Diabetes mellitus: Code(s): E11.9 - Type 2 diabetes mellitus without complications Qualifiers: Diabetes mellitus type: type 2 Diabetes mellitus buttermaker continuous churn insulin use: without prison use Diabetes mellitus complication status: without complication Qualified Code(s): E11.9 - Type 2 diabetes mellitus without complications Plan: Continue glipizide. A1c goal is equal or less than 7%. (4) Hyperlipidemia LDL goal <70: Code(s): E78.5 - Hyperlipidemia, unspecified Plan: Continue statins. Repeat lipid panel. LDL goal is less than 70. Orders: Orders AMB Hemoglobin A1c Today E11.9 - Type 2 diabetes mellitus without complications Lipid Panel Today E78.5 - Hyperlipidemia, unspecified Microalbumin, Random (w Creat) Today E11.9 - Type 2 diabetes mellitus without complications Comprehensive [place]. Panel Fast Today E11.9 - Type 2 diabetes mellitus without complications Referrals Gastroenterology Referral R93.3 - Abnormal findings on diagnostic imaging of other parts of digestive tract Medications: New pantoprazole 40 mg PO DAILY 90 days 90 tabs 1RF Refilled rosuvastatin 5 mg PO DAILY 90 days 90 tabs 1RF Discontinued omeprazole Discontinued Reason: Patient Completed Course 20 mg PO DAILY 90 days 90 caps 1RF Coding Level of Care Code Est Pt Level 4 (90424) Complex EM visit Add On G2211 Diagnoses Abnormal UGI series R93.3 GERD (gastroesophageal reflux disease) K21.9 Type 2 diabetes mellitus without complication, without long-term current use of insulin E11.9 Diabetes mellitus type: type 2 Diabetes mellitus buttermaker continuous churn insulin use: without buttermaker continuous churn use Diabetes mellitus complication status: without complication Hyperlipidemia LDL goal <70 E78.5 Time Spent (min) 23
[2024-03-26 14:05] VITALS: BP 114/80; BMI 25.6
== END 2024-03-26 14:30 | disposition home or self-care (01) ==
PROVIDERS: PCP Internal Medicine; Visit Provider Internal Medicine
DX: R93.3 Abnormal findings on diagnostic imaging of other parts of digestive tract (principal); K21.9 Gastro-esophageal reflux disease without esophagitis; E11.9 Type 2 diabetes mellitus without complications; E78.5 Hyperlipidemia, unspecified
CPT/HCPCS: 83036; 99214; G2211

== ENCOUNTER 2024-06-25 14:41 | Outpatient (REF) | payer MEDICARE, MEDICAID, SELFPAY ==
--- NOTE | ~2024-06-25 | MM_ITS ---
EXAMINATION: MM SCREENING DIGITAL BREAST TOMOSYNTHESIS, BILATERAL CLINICAL INFORMATION: Screening. Asymptomatic. COMPARISON: Mammography: Comparison is made with available priors TECHNIQUE: Digital breast mammography with tomosynthesis is performed in both the craniocaudal and mediolateral oblique views along with computer-aided detection (CAD). FINDINGS: There are scattered areas of fibroglandular density (ACR BI-RADS breast composition Category b). There are no significant masses, abnormal calcifications, or other abnormalities. MM/MM tomosynthesis screening BI IMPRESSION: No mammographic evidence of malignancy. ASSESSMENT: BI-RADS BI-RADS 1 - Negative RECOMMENDATION: Routine annual mammography screening. 1 year F/U This examination should not preclude the clinical evaluation of a suspicious palpable abnormality. This patient's information was entered into a reminder system with a target due date for their next mammogram. Electronically signed by: Mirian Ness DO 07/13/2024 09:47 AM EDT
== END 2024-06-25 14:42 | disposition home or self-care (01) ==
LOC: HO.MAMMO 14:41
PROVIDERS: PCP Internal Medicine; Visit Provider Internal Medicine
DX: Z12.31 Encounter for screening mammogram for malignant neoplasm of breast (principal)
CPT/HCPCS: 77063; 77067

== ENCOUNTER → 2024-06-25 14:45 | Outpatient (BNV) | payer MEDICARE, MEDICAID, SELFPAY | PROVIDERS: PCP Internal Medicine; Visit Provider Internal Medicine | DX: Z12.31 Encounter for screening mammogram for malignant neoplasm of breast (principal) | CPT/HCPCS: 77063; 77067 ==

== ENCOUNTER 2024-07-28 08:44 | Outpatient (REF) | payer MEDICARE, MEDICAID, SELFPAY ==
[2024-07-28 10:31] LABS: Alanine Aminotransferase 32 U/L (0-31); Albumin Level 4.3 g/dL (3.5-5.0); Alkaline Phosphatase 75 U/L (39-117); Anion Gap 9 (12-20); Aspartate Amino Transferase 17 U/L (5-31); Bilirubin Total 0.6 mg/dL (0.0-1.0); Blood Urea Nitrogen 18 mg/dL (9-16); Calcium 9.3 mg/dL (8.4-10.2); Carbon Dioxide 28 mmol/L (22-29); Chloride 108 mmol/L (96-108); Cholesterol 218 mg/dL (<200); Estimated Glomerular Filt Rate > 60; Glucose Fasting 133 mg/dL (60-99); HDL Cholesterol 37 mg/dL (>40); LDL Cholesterol Calculated 109 mg/dL (<100); Potassium 4.2 mmol/L (3.3-5.1); Sodium 141 mmol/L (135-145); Triglycerides 362 mg/dL (<150)
[2024-07-28 10:47] LABS: Creatinine Urine 74.29 mg/dL; Microalbum/Creatinine Ratio Ur 12.1 ug/mg cr (<30)
== END 2024-07-28 08:45 | disposition home or self-care (01) ==
LOC: HO.HMGCLDS 08:44
PROVIDERS: PCP Internal Medicine; Visit Provider Internal Medicine
DX: E78.5 Hyperlipidemia, unspecified (principal); E11.9 Type 2 diabetes mellitus without complications
CPT/HCPCS: 36415; 80053; 80061; 82043; 82570

== ENCOUNTER 2024-08-14 13:51 | Outpatient (AMB) | payer MEDICARE, MEDICAID, SELFPAY ==
--- NOTE | 2024-08-14 13:54 | A.OFFVIS_ITS ---
Intake Vital Signs 08/14/24 14:02 Height 5 ft 2 in Weight 142 lb BMI 26.0 BP 110/80 Blood Pressure Location Lt brachial Position Sitting Pulse 82 Pulse Source Pulse Oximeter Pulse Oximetry (%) 96 Oxygen Delivery Method Room Air Intake Visit Reasons: physical Physical Laboratory Assistant Required: No Accompanied by: Self / Same As Patient Allergies acetaminophen [From Percocet] Allergy (Mild, Verified 08/14/24 14:15) Rash ezetimibe Allergy (Mild, Verified 08/14/24 14:15) rash oxycodone [From Percocet] Allergy (Mild, Verified 08/14/24 14:15) Rash Medication List - Last Reconciled 08/14/24 by Shanita Moncada MD albuterol sulfate 90 mcg/actuation (Ventolin HFA) 2 puffs inhalation Q6H PRN fluticasone furoate 50 mcg/actuation (Arnuity Ellipta) 1 inh inhalation DAILY 30 days glipizide ER 2.5 mg PO DAILY pantoprazole 40 mg PO DAILY 90 days rosuvastatin 10 mg PO DAILY 90 days sumatriptan succinate 25 mg PO Q2-4H PRN 30 days Do you need a note to return to daycare/school/sports/work: No HPI HPI Comments History of Present Illness Details This is a 63-year-old female with diabetes mellitus type 2 that comes for her Medicare wellness exam. Ppp handed to patient. [place] of care was reviewed. Mammogram done 2023. No need for Pap smear due to age and hysterectomy. Will see Gastroenterology soon for evaluation of possible colonoscopy. [facility] Medical History (Updated 08/15/24 @ 11:12 by Shanita Moncada MD) Hyperlipidemia Glucose intolerance Surgical History History of hysterectomy Family History Father CAD (coronary artery disease) Mother CAD (coronary artery disease) Social History Housing: Apartment Alcohol intake: never Patient Tobacco Use Status: Never used Tobacco e-Cigarette/Vaping Use: Never Used Second Hand Smoke Exposure: No service: No Current occupational status: disabled Cognitive needs: No Hearing needs: No Vision needs: Yes Questionnaire Medicare Wellness Checkup [age] What gender do you identify with?: female During the past 4 weeks, how much have you been bothered by emotional problems such as feeling anxious, depressed, irritable, sad or downhearted, and blue?: not at all During the past 4 weeks, has your physical & emotional health limited your social activities with family, friends, neighbors, or groups?: slightly During the past 4 weeks, how much bodily pain have you generally had?: moderate pain During the past 4 weeks, was someone available to help you if you needed & wanted help?: no, not at all During the past 4 weeks, what was the hardest physical activity you could do for at least 2 minutes?: moderate Can you get to places out of walking distance without help? (For eg., can you travel alone on buses, taxis or drive your car?): Yes Can you go shopping for groceries or clothes without someone's help?: Yes Can you prepare your own meals?: Yes Can you do your housework without help?: Yes Because of any health problems, do you need the help of another person with your personal care needs such as eating, bathing, dressing or getting around the house?: No Can you handle your own money without help?: Yes During the past 4 weeks, how would you rate your health in general?: fair During the past 4 weeks how have things been going for you?: pretty well Are you having difficulties driving your car?: no Do you always fasten your seat belt when you are in a car?: yes, usually During past 4 weeks, have you been bothered by the following: sometimes: Tiredness or fatigue? Have you fallen 2 or more times in the past year?: No Are you afraid of falling?: No Are you a smoker?: no During the past 4 weeks, how many drinks of wine, beer, or other alcoholic beverages did you have?: no alcohol at all Do you exercise for about 20 minutes 3 or more times a week?: yes, some of the time Have you been given information to help with the following?: no: Hazards in your house that might hurt you? and no: Keeping track of your medications? How often do you have trouble taking medicines the way you have been told to take them?: I do not have to take medicine How confident are you that you can control & manage most of your health probl ems?: very confident What is your race?: or origin or descent Mini Mental State Exam (MMSE) Orientation What is the (year) (season) (date) (day) (month)?: year, season, date, day and month Where are we (state) (county) (town or city) (hospital) (floor)?: state, county, town or city, hospital/clinic and floor Registration Name of 3 unrelated objects clearly and slowly, then ask patient to repeat all 3 of them. (1st repeat determines score. Make sure they can repeat all three): object 1, object 2 and object 3 Attention & Calculation (CHOOSE ONE) Spell WORLD backwards (DLROW): 5 letters Recall Ask patient to repeat the 3 items from question #3.: object 1, object 2 and object 3 Language Show patient a wristwatch & ask what it is. Repeat for pencil.: watch and pencil Ask the patient to repeat the phrase 'No ifs, ands, or buts' after you.: correct Ask the patient to 'take a piece of paper with their right hand' 'fold paper in half' 'place paper on floor': take paper in right hand, fold paper in half and place paper on floor Print the sentence 'CLOSE YOUR EYES' on a piece. If patient actually closes eyes then score.: followed written direction Give patient a blank piece of paper & ask to write a sentence. Score if it contains a noun & verb.: sentence contains subject and verb Ask patient to copy figure of intersecting pentagons exactly. Score if all 10 angles & 2 intersects are included.: all 10 angles present & 2 are intersected Score Score: 30 Activity of Daily Living Bathing - sponge bath, tub bath or shower: receives no assistance (gets in/out by self, if usual bathing means Dressing - getting clothes from closets & drawers, including inner/outer garments & fasteners.: gets clothes & gets completely dressed without help Transfer: moves in & out of bed and chair without help (may use support object) Continence: controls urination/bowel movements completely by self Feeding: feeds self without help Total Score: 0 Information obtained from: patient Using telephone: independent Traveling: independent Shopping: independent Preparing meals: independent Housework: independent Taking medicine: independent Managing money: independent PHQ-9 Over the last 2 weeks, how often have you been bothered by any of the following problems? 1. Little interest or pleasure in doing things: not at all 2. Feeling down, depressed, or hopeless: not at all 3. Trouble falling or staying asleep, or sleeping too much: more than half the days 4. Feeling tired or having little energy: more than half the days 5. Poor appetite or overeating: more than half the days 6. Feeling bad about yourself - or that you are a failure or have let yourself or your family down: not at all 7. Trouble concentrating on things, such as reading the newspaper or watching television: not at all 8. Moving or speaking so slowly that other people could have noticed. Or the opposite - being so fidgety or restless that you have been moving around a lot more than usual: not at all 9. Thoughts that you would be better off or of hurting yourself in some way: not at all Total score: 6 Depression Screening Interpretation: Positive Depression Screening Follow-up: Existing condition and Follow-up Visit Requested Depression Screening Done: Yes 26587 - PHQ-9 Billing: Yes Source: Developed by Drs. Chapincito Cruz, Mary Rodriguez, Aditya Akins and colleagues, with an educational justine from [employer]. Fall Risk Assessment Fall Risk Assessment Fall risk assessment: No Falls in past year Thrive Questionnaire Date Thrive assessed: 08/14/24 I am a: Patient What is your living situation today?: I have a steady place to live Within the past 12 months, did the food you bought not last and you didn't have the money to get more?: Never true Within the past 12 months, did you worry whether your food would run out before you got money to buy more?: Never true Do you have trouble paying for medicines?: No Do you have trouble getting transportation to medical appointments?: No Do you have trouble paying your heating and electricity bill?: No Do you have trouble taking care of your child, family member or friend?: No Do you have trouble with day-to-day activities such as bathing, preparing meals, shopping, managing finances, etc.?: No Are you currently unemployed and looking for a job?: No Are you interested in more education?: No Please select the resources that you would like help with: None Currently or been in a relationship where the following occur: No concerns reported THRIVE Score: 0 AUDIT C Alcohol Use Questionnaire (AUDIT-C) 1. How often do you have a drink containing alcohol?: Never Total Score: 0 Score Reviewed/Action Taken: No FRANCIS-7 AMB Questionnaire FRANCIS-7 Date FRANCIS - 7 assessed: 08/14/24 Feeling nervous, anxious, or on edge: 0 = Not at all Not being able to stop or control worryin = Not at all Worrying too much about different things: 0 = Not at all Trouble relaxin = Not at all Being so restless that it is hard to sit still: 0 = Not at all Becoming easily annoyed or irritable: 0 = Not at all Feeling afraid as if something awful might happen: 0 = Not at all Total FRANCIS-7 score (0-4 normal; 5-9 mild; 10-14 moderate; 15-21 severe): 0 Source: Developed by Drs. Chapincito Cruz, Mary Rodriguez, Aditya Akins and colleagues, with an educational justine from [employer]. FRANCIS-7 Assessment Billing FRANCIS-7 Assessment Tool: FRANCIS-7 Assessment 32766 Review of Systems Const All systems reviewed & are unremarkable except as noted in HPI and below Eyes Reports no additional complaints, Denies change in vision and Denies other visual disturbances Card Denies chest pain at rest, Denies chest pain with activity, Denies edema, Denies irregular heart rhythm, Denies claudication, Denies dyspnea, Denies dyspnea on exertion, Denies orthopnea, Denies paroxysmal nocturnal dyspnea and Denies slow heart rate Resp Denies cough, Denies dyspnea and Denies dyspnea on exertion Physical Exam Vital Signs: Last Vital Signs Pulse 82 08/14/24 14:02 BP 110/80 08/14/24 14:02 Pulse Ox 96 08/14/24 14:02 Oxygen Delivery Method Room Air 08/14/24 14:02 BMI result Body Mass Index 26.0 Resp Effort & Inspection: normal respiratory effort Auscultation: clear to auscultation bilaterally Cardio Jugular venous distension: no JVD Rate: regular rate Rhythm: regular rhythm Heart sounds: S1 normal heart sound present and S2 normal heart sound present Neuro Romberg Test: Negative Extrem General: Yes full ROM Office Procedures Flu Questionnaire Does the patient have a severe egg allergy?: No Does the patient have severe life threatening allergies?: No Does the patient have a fever or illness today?: No Has the patient ever had Guillain-[place] Syndrome?: No Has the patient ever had any past reaction to a flu shot?: No Results AMB Hemoglobin A1c AMB Hemoglobin A1c 5.7 % Last Edit by MARIBELL Monsalve on 08/14/24 14:3 0 Immunizations Fluarix Triv [id number] (PF) 45 mcg (15 mcg x 3)/0.5 mL IM syringe Performing Provider: Shanita Moncada MD [facility] Administered by: MARIBELL Monsalve on 08/14/24 14:33 Dose Route Admin Location Dispensed Lot Number Expiration Date NDC Dipper Fish 0.5 mL IM Right Deltoid 0.5 mL [id number] 04/20/25 [id number] [employer] VIS Given Date VIS Provided VIS Publication Date 08/14/24 Single Vaccine 21 Eligibility Eligibility Date Funding Source Not [facility] Eligible 08/14/24 Private Results Reviewed Results Reviewed: Laboratory Last Values Hgb A1c (Clinic) 5.7 % (4.0-6.0) 08/14/24 14:16 Assessment & Plan Assessment & Plan (1) Encounter for Medicare annual wellness exam: Code(s): Z00.00 - Encounter for general adult medical examination without abnormal findings Plan: Repeat in a year. 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 Start Ozempic. A1c goal is equal or less than 7%. Orders: Orders AMB Hemoglobin A1c 08/14/24 Z13.9 - Encounter for screening, unspecified Influenza [id number] Immunization 08/14/24 Z23 - Encounter for immunization XR DEXA axial skeleton 08/14/24 Z78.0 - Asymptomatic menopausal state XR hip LT min 2V 08/14/ M25.552 - Pain in left hip Medications: New metformin 500 mg PO BID 90 days 180 tabs 1RF semaglutide (Ozempic) for 4 weeks 0.25 mg (0.368 mL) subcut QWEEK 4 weeks 1.472 mL 0RF E11.9 - Type 2 diabetes mellitus without complications fenofibrate 54 mg PO DAILY 90 days 90 tabs 1RF Quality Reporting (2019) Fall Risk Screening ([facility] 139) Fall risk assessment: No Falls in past year Depression/Bipolar (159/160/161/177) PHQ-9: Total score: 6 Coding Level of Care Code Medicare First (G0438) Diagnoses Encounter for Medicare annual wellness exam Z00.00 Type 2 diabetes mellitus without complication, without long-term current use of insulin E11.9 Diabetes mellitus type: type 2 Diabetes mellitus retirement insulin use: without joint terminal attack controller use Diabetes mellitus complication status: without complication Additional Codes FRANCIS-7 Assessment Billing - FRANCIS-7 Assessment Tool: FRANCIS-7 Assessment 80435 ([id number]) Time Spent (min) 35
[2024-08-14 14:02] VITALS: BP 110/80; PULSE 82; O2SAT 96; BMI 26.0
== END 2024-08-14 14:37 | disposition home or self-care (01) ==
PROVIDERS: PCP Internal Medicine; Visit Provider Internal Medicine
DX: Z00.00 Encounter for general adult medical examination without abnormal findings (principal); E11.9 Type 2 diabetes mellitus without complications

== ENCOUNTER → 2024-08-14 13:51 | Outpatient (BNVA) | payer MEDICARE, MEDICAID, SELFPAY | PROVIDERS: PCP Internal Medicine; Visit Provider Internal Medicine | DX: Z00.00 Encounter for general adult medical examination without abnormal findings (principal); Z23 Encounter for immunization; E11.9 Type 2 diabetes mellitus without complications | CPT/HCPCS: 83036; 90471; 90656; 96127 ==

== ENCOUNTER 2024-09-09 12:52 | Outpatient (REF) | payer MEDICARE, MEDICAID, SELFPAY ==
--- NOTE | ~2024-09-09 | MM_ITS ---
EXAMINATION: BONE DENSITOMETRY CLINICAL INDICATION: Asymptomatic menopausal state. COMPARISON: This is the patient's baseline examination. TECHNIQUE: Using a [employer]na[employer] DXA System (software version: 13.1) manufactured by [employer], dual-energy x-ray absorptiometry was performed of the lumbar spine and left hip. The images are of good technical quality. Summary results are attached. FINDINGS: LEFT FEMUR, NECK: BMD 1.033 g/cm2, Z-score 1.5, T-score 0.0, normal. LEFT FEMUR, TOTAL: BMD 1.086 g/cm2, Z-score 1.9, T-score 0.6, normal. AP SPINE L1-L4 (excluding L3): The data of L1-L4 has been changed to exclude the L3 vertebral body, because significant degenerative change at this level may cause overestimation of lumbar spine density. BMD 0.851 g/cm2, Z-score -1.0, T-score -2.7, osteoporosis. IDENTIFIED RISK FACTORS: Early menopause, secondary osteoporosis, hysterectomy, left oophorectomy. HISTORY OF FRACTURE: None listed. MEDICATIONS: Calcium supplements or multivitamin, vitamin D. MM/XR DEXA axial skeleton IMPRESSION: 1. DIAGNOSIS: Osteoporosis based on the lowest T-score value of -2.7 in the lumbar spine applying World Health Organization criteria. 2. 10-YEAR FRACTURE RISK PREDICTION, FRAX: According to the guidelines, FRAX calculation should only be performed on patients in the osteopenia bone density category. Therefore, FRAX was not performed on this patient. 3. Treatment Recommendations: NOF guidelines recommend consideration for treatment in postmenopausal women and men age 50 and older presenting with the following: -A hip or vertebral (clinical or morphometric) fracture. -T-score less than or equal to -2.5 at the femoral neck or spine after appropriate evaluation to exclude secondary causes. -Low bone mass at the hip or spine and a 10-year fracture probability by FRAX of greater than or equal to 3% for hip fracture or greater than or equal to 20% for major osteoporotic fracture based on the [place] adapted WHO algorithm. 4. Other Recommendations: All treatment decisions require clinical judgment and consideration of individual patient factors, including patient preferences, comorbidities, previous drug use, risk factors not captured in the FRAX model (e.g. frailty, falls, vitamin D deficiency, increased bone turnover, interval significant decline in bone density) and possible under or overestimation of fracture risk by FRAX. Additional medical evaluation for secondary cause of low bone mineral density may be appropriate. FUTURE SCAN RECOMMENDATION: People with diagnosed cases of osteoporosis or at high risk for fracture should have regular bone mineral density tests. For patients eligible for Medicare, routine testing is allowed once every 2 years. The testing frequency can be increased to one year for patients who have rapidly progressing disease, those who are receiving or discontinuing medical therapy to restore bone mass, or have additional risk factors. Electronically signed by: Jeronimo Hess MD 09/10/2024 08:31 AM [facility]
== END 2024-09-09 12:53 | disposition home or self-care (01) ==
LOC: HO.MAMMO 12:52
PROVIDERS: PCP Internal Medicine; Visit Provider Internal Medicine
DX: Z13.820 Encounter for screening for osteoporosis (principal); Z78.0 Asymptomatic menopausal state
CPT/HCPCS: 77080

== ENCOUNTER 2025-02-05 15:39 | Outpatient (AMB) | payer MEDICARE, MEDICAID, SELFPAY ==
--- NOTE | 2025-02-05 15:42 | A.OFFPC_ITS ---
Vital Signs 02/05/25 15:45 Height 5 ft 2 in Weight 139 lb BMI 25.4 BP 128/80 Blood Pressure Location Lt brachial Position Sitting Intake Visit Reasons: dm Intake Note: Patient here for a follow up Artistic Director Required: No Accompanied by: Self / Same As Patient Allergies acetaminophen [From Percocet] Allergy (Mild, Verified 02/05/25 16:06) Rash ezetimibe Allergy (Mild, Verified 02/05/25 16:06) rash oxycodone [From Percocet] Allergy (Mild, Verified 02/05/25 16:06) Rash Medication List - Last Reconciled 02/05/25 by Shanita Moncada MD albuterol sulfate 90 mcg/actuation (Ventolin HFA) 2 puffs inhalation Q6H PRN dulaglutide (Trulicity) 0.75 mg (0.5 mL) subcut QWEEK 90 days fenofibrate 54 mg PO DAILY 90 days fluticasone furoate 50 mcg/actuation (Arnuity Ellipta) 1 inh inhalation DAILY 30 days glipizide ER 2.5 mg PO DAILY metformin 500 mg PO BID 90 days nebulizers (AeroEclipse II Nebulizer) As directed pantoprazole 40 mg PO DAILY 90 days rosuvastatin 10 mg PO DAILY 90 days semaglutide (Ozempic) 0.25 mg (0.368 mL) subcut QWEEK 4 weeks sumatriptan succinate 25 mg PO Q2-4H PRN 30 days tirzepatide (Mounjaro) 2.5 mg (0.5 mL) subcut QWEEK 4 weeks Tobacco use date assessed: 02/05/25 Fall risk assessment: No Falls in past year Last assessed Fall Risk: 02/05/25 Dental Screening Dental Screen Date: 02/05/25 Did you have a dental visit in the last 12 months?: No Did you have a dental problem in the last 6 months where you did not have access to dental care?: No Was dental information given to patient?: Patient has dentist HPI HPI Comments History of Present Illness Details The patient is a 64-year-old female presenting for follow-up regarding her diabetes and osteoporosis, with additional concerns about weight management and medication access. Her diabetes management is stable, reflected by an HbA1c of 6.1%. Her regimen includes Metformin and Trulicity, both well-tolerated and effective in maintaining glycemic control. She also has mixed hyperlipidemia and LDL should be less than 70. Labs will be ordered. GERD stable with PPIs. Osteoporosis was confirmed through a recent bone density examination, revealing the necessity of management, particularly due to associated hip pain. For relief and additional therapeutic benefit, she is using Magnesium 400 mg, which aids in migraine control. The patient notes a dissatisfaction with current weight, expressing a desire to reduce her weight by approximately 10 pounds. Despite recent fluctuations from 142 lbs to 139 lbs, she is intent on further reduction. Challenges in accessing Ozempic and Mounjaro due to insurance disapproval are noted, though current medications have been effective. Current allergies include adverse reactions to Percocet and cetirizine, causing dermatological responses. She also reports occasional respiratory distress, for which inhalers have been prescribed and have provided relief. [facility] Medical History (Updated 02/05/25 @ 17:25 by Shanita Moncada MD) Hyperlipidemia Glucose intolerance Surgical History History of hysterectomy Family History Father CAD (coronary artery disease) Mother CAD (coronary artery disease) Social History Housing: Apartment Alcohol intake: never Patient Tobacco Use Status: Never used Tobacco e-Cigarette/Vaping Use: Never Used Second Hand Smoke Exposure: No service: No Current occupational status: disabled Cognitive needs: No Hearing needs: No Vision needs: Yes Questionnaire PHQ-9 Over the last 2 weeks, how often have you been bothered by any of the following problems? 1. Little interest or pleasure in doing things: not at all 2. Feeling down, depressed, or hopeless: not at all 3. Trouble falling or staying asleep, or sleeping too much: not at all 4. Feeling tired or having little energy: not at all 5. Poor appetite or overeating: not at all 6. Feeling bad about yourself - or that you are a failure or have let yourself or your family down: not at all 7. Trouble concentrating on things, such as reading the newspaper or watching television: not at all 8. Moving or speaking so slowly that other people could have noticed. Or the opposite - being so fidgety or restless that you have been moving around a lot more than usual: not at all 9. Thoughts that you would be better off or of hurting yourself in some way: not at all Total score: 0 Depression Screening Interpretation: Negative Depression Screening Done: Yes 55800 - PHQ-9 Billing: Yes Source: Developed by Drs. Chapincito Cruz, Mary Rodriguez, Aditya Akins and colleagues, with an educational justine from [employer]. Thrive Questionnaire Date Thrive assessed: 02/05/25 I am a: Patient What is your living situation today?: I have a steady place to live Within the past 12 months, did the food you bought not last and you didn't have the money to get more?: Never true Within the past 12 months, did you worry whether your food would run out before you got money to buy more?: Never true Do you have trouble paying for medicines?: No Do you have trouble getting transportation to medical appointments?: No Do you have trouble paying your heating and electricity bill?: No Do you have trouble taking care of your child, family member or friend?: No Do you have trouble with day-to-day activities such as bathing, preparing meals, shopping, managing finances, etc.?: No Are you currently unemployed and looking for a job?: No Are you interested in more education?: No Please select the resources that you would like help with: None Currently or been in a relationship where the following occur: No concerns reported THRIVE Score: 0 AUDIT C Alcohol Use Questionnaire (AUDIT-C) 1. How often do you have a drink containing alcohol?: Never Total Score: 0 Score Reviewed/Action Taken: No FRANCIS-7 AMB Questionnaire FRANCIS-7 Date FRANCIS - 7 assessed: 02/05/25 Feeling nervous, anxious, or on edge: 0 = Not at all Not being able to stop or control worryin = Not at all Worrying too much about different things: 0 = Not at all Trouble relaxin = Not at all Being so restless that it is hard to sit still: 0 = Not at all Becoming easily annoyed or irritable: 0 = Not at all Feeling afraid as if something awful might happen: 0 = Not at all Total FRANCIS-7 score (0-4 normal; 5-9 mild; 10-14 moderate; 15-21 severe): 0 Source: Developed by Drs. Chapincito Cruz, Mary Rodriguez, Aditya Akins and colleagues, with an educational justine from [employer]. FRANCIS-7 Assessment Billing FRANCIS-7 Assessment Tool: FRANCIS-7 Assessment 24666 Review of Systems Const All systems reviewed & are unremarkable except as noted in HPI and below Card Denies chest pain at rest, Denies chest pain with activity, Denies edema, Denies irregular heart rhythm, Denies claudication, Denies dyspnea, Denies dyspnea on exertion, Denies orthopnea, Denies paroxysmal nocturnal dyspnea and Denies slow heart rate Resp Denies cough, Denies dyspnea and Denies dyspnea on exertion GI Denies abdominal pain, Denies change in bowel habits, Denies excessive flatus, Denies nausea and Denies vomiting Denies urinary incontinence, Denies urinary hesitancy and Denies urinary urgency Musc Denies abnormal gait, Denies atrophy, Denies deformity and Denies limited range of motion Skin/Breast Denies bleeding lesions, Denies changing lesions and Denies rash Neuro Denies abnormal gait and Denies lack of coordination Physical exam (Primary Care) Vital Signs: Last Vital Signs BP 128/80 02/05/25 15:45 BMI result Body Mass Index 25.4 Tobacco/Smoking Status: Tobacco use Status Tobacco use date assessed 02/05/25 02/05/25 15:51 Patient Tobacco Use Status Never used Tobacco 02/05/25 15:44 e-Cigarette/Vaping Use Never Used 02/05/25 15:44 PHQ-9: PHQ-9 Score PHQ-9: Total score 0 02/05/25 16:07 Depression Screening Interpretation: Negative Thrive Assessment: Date of Thrive Assessment Date Thrive assessed 02/05/25 02/05/25 15:44 Currently or been in a relationship where the following occur: No concerns reported Resp Effort & Inspection: normal respiratory effort Auscultation: clear to auscultation bilaterally Cardio Jugular venous distension: no JVD Rate: regular rate Rhythm: regular rhythm Heart sounds: S1 normal heart sound present and S2 normal heart sound present Extrem General: Yes full ROM Results AMB Hemoglobin A1c AMB Hemoglobin A1c 6.1 % Last Edit by MARIBELL Monsalve on 02/05/25 16:0 8 Results Reviewed Results Reviewed: Laboratory Last Values Hgb A1c (Clinic) 6.1 % (4.0-6.0) H 02/05/25 15:53 Coding Level of Care Code Est Pt Level 4 (56963) Complex EM visit Add On G2211 Diagnoses Type 2 diabetes mellitus without complication, without long-term current use of insulin E11.9 Diabetes mellitus type: type 2 Diabetes mellitus jail insulin use: without long term care administrator use Diabetes mellitus complication status: without complication Hyperlipidemia LDL goal <70 E78.5 GERD (gastroesophageal reflux disease) K21.9 Migraines G43.909 Osteoporosis M81.0 Additional Codes FRANCIS-7 Assessment Billing - FRANCIS-7 Assessment Tool: FRANCIS-7 Assessment 42518 ([id number]) PHQ-9 - 26267 - PHQ-9 Billing: Yes ([id number]) Time Spent (min) 23 Assessment & Plan Assessment & Plan (1) Diabetes mellitus: Code(s): E11.9 - Type 2 diabetes mellitus without complications Category: Medical Qualifiers: Diabetes mellitus type: type 2 Diabetes mellitus jail insulin use: without long term care administrator use Diabetes mellitus complication status: without complication Qualified Code(s): E11.9 - Type 2 diabetes mellitus without complications (2) Hyperlipidemia LDL goal <70: Code(s): E78.5 - Hyperlipidemia, unspecified Category: Medical (3) GERD (gastroesophageal reflux disease): Code(s): K21.9 - Gastro-esophageal reflux disease without esophagitis Category: Medical (4) Migraines: Code(s): G43.909 - Migraine, unspecified, not intractable, without status migrainosus Category: Medical (5) Osteoporosis: Code(s): M81.0 - Age-related osteoporosis without current pathological fracture Category: Medical Plan For diabetes, management with Metformin and Trulicity will be continued, as current treatment shows satisfactory results in glycemic control. Future consideration of alternative therapies such as Ozempic or Mounjaro remains dependent on insurance compliance. Ongoing assessment with A1c monitoring is planned to evaluate treatment efficacy. Osteoporosis treatment will proceed to mitigate symptoms like hip pain and prevent further bone loss. Usage of Magnesium 400 mg continues to be advantageous for both musculoskeletal support and migraine relief, and patient instruction on its benefit will be reiterated. Weight management requires continued observation, addressing dietary habits and maintaining physical activity to achieve realistic health goals. Prescription challenges are discussed, with ongoing efforts to navigate insurance limitations. Patient was informed and verbally consented to the use of an ambient scribe for clinic note documentation during this visit. During the consultation, I reviewed the patient's diabetes control, emphasizing the positive A1c result of 6.1% and the effective use of Metformin and Trulicity. Discussions on weight management highlighted realistic expectations, given recently documented weights and medication constraints related to insurance disapprovals for Ozempic and Mounjaro. We addressed osteoporosis, with recommendations for appropriate treatment to address her reported hip pain and further support her bone health with Magnesium 400 mg. A comprehensive overview of potential risks, benefits, and expected outcomes of the treatment for diabetes and osteoporosis was provided. Follow-up visits were scheduled for continuous monitoring of her conditions, and consultations were reiterated as necessary based on therapy outcomes and her overall health journey. Orders: Orders AMB Hemoglobin A1c Today E11.9 - Type 2 diabetes mellitus without complications Lipid Panel Today E78.5 - Hyperlipidemia, unspecified Vitamin D 25-OH Total Today E55.9 - Vitamin D deficiency, unspecified Microalbumin, Random (w Creat) Today R80.9 - Proteinuria, unspecified Comprehensive [place]. Panel Fast Today E11.9 - Type 2 diabetes mellitus without complications Medications: Changed From albuterol sulfate 90 mcg/actuation (Ventolin HFA) 2 puffs inhalation Q6H PRN wheezing To albuterol sulfate 90 mcg/actuation (Ventolin HFA) 2 puffs inhalation Q6H PRN 8.5 grams 1RF wheezing 30 days Discontinued semaglutide (Ozempic) for 4 weeks Discontinued Reason: Order 0.25 mg (0.368 mL) subcut QWEEK 4 weeks 1.472 mL 0RF E11.9 - Type 2 diabetes mellitus without complications tirzepatide (Mounjaro) for 4 weeks Discontinued Reason: Patient Completed Course 2.5 mg (0.5 mL) subcut QWEEK 4 weeks 2 mL 0RF E11.9 - Type 2 diabetes mellitus without complications Patient Instructions: - Continue taking Metformin and Trulicity as prescribed. - Use inhaler as needed for breathing troubles. - Start osteoporosis treatment as discussed. - Maintain current treatments for migraines including Magnesium 400 mg. - Monitor diet and physical activity for weight management. - Schedule follow-up appointment as instructed. - Call if you experience any new or worsening symptoms.
[2025-02-05 15:45] VITALS: BP 128/80; BMI 25.4
--- OUTSIDE RECORDS SUMMARY | 2025-02-05 18:08 | XMS_ITS | Clinical Summary ---
Author Organization [facility] Address [address] [place] [address] Care Team Providers Care Skein Mercerizing Machine Operator Name Role Phone Luis Antonio Cook RD Primary Care Provider [phone] Source Comments PLEASE NOTE, if this patient is a minor, it may be UNLAWFUL to discuss sensitive information that is contained in these records (such as FAMILY PLANNING, MENTAL HEALTH or SUBSTANCE ABUSE) with the minor patient's parent or other person without the patient's specific authorization.[facility] Social History Tobacco Use Types Packs/Day Years Used Date Smoking Tobacco: Never Assessed Social Connections Answer Date Recorded Social Connections and Isolation 0 06/15/2019 Financial Resource Strain Answer Date R ecorded Financial Resource Strain 0 2018 Stress Answer Date Recorded Stress 0 06/15/2019 Physical Activity Answer Date Recorded Physical Activity 0 06/15/2019 Food Insecurity Answer Date Recorded Food 0 06/15/2019 Transportation Needs Answer Date Record ed Transportation 0 06/15/2019 Housing Stability Answer Date Recorded Housing 0 06/15/2019 Safety and Environment Answer Date Logan rded Safety 0 06/15/2019 Utilities Answer Date Recorded Utilities 0 06/15/2019 Employment Answer Date Recorded Employment 0 06/15/2019 Comments Unknown Sex and Gender Information Value Date Recorded Sex Assigned at Not on file Legal Sex Female 11:32 AM PDT Gender Identity Not on file Sexual Orientation Not on file Last Filed Vital Signs Vital Sign Reading Time Taken Comments Blood Pressure - - Pulse - - Temperature - - Respiratory Rate - - Oxygen Saturation - - Inhaled Oxygen Concentration - - Weight 68.9 kg (152 lb) 01/25/2017 10:52 AM EDT Height 157.5 cm (5' 2 ) 01/25/2017 10:52 AM EDT Body Mass Index 27.8 01/25/2017 10:52 AM EDT Plan of Treatment Not on file Insurance [employer] ([facility]) Member Subscriber Plan / Payer (Ef fective 2017-Present) Name:Lula Little I Relation to Subscriber:Self Name:Lula Little I Payer ID:[id number] Group ID:Not on file Type:Indemnity Address: [address] [place] [id number] Care Teams Skein Mercerizing Machine Operator Relationship Specialty Start Date End Date Luis Antonio Cook RD [address] [place] [address] PCP - General Nutrition 01/03/17
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
== END 2025-02-05 16:17 | disposition home or self-care (01) ==
LOC: HO.HMCH 15:40
PROVIDERS: PCP Internal Medicine; Visit Provider Internal Medicine
DX: E11.9 Type 2 diabetes mellitus without complications (principal); E78.5 Hyperlipidemia, unspecified; K21.9 Gastro-esophageal reflux disease without esophagitis; G43.909 Migraine, unspecified, not intractable, without status migrainosus; M81.0 Age-related osteoporosis without current pathological fracture

== ENCOUNTER → 2025-02-05 15:39 | Outpatient (BNVA) | payer MEDICARE, MEDICAID, SELFPAY | PROVIDERS: PCP Internal Medicine; Visit Provider Internal Medicine | DX: E11.9 Type 2 diabetes mellitus without complications (principal); E78.5 Hyperlipidemia, unspecified; K21.9 Gastro-esophageal reflux disease without esophagitis; G43.909 Migraine, unspecified, not intractable, without status migrainosus; M81.0 Age-related osteoporosis without current pathological fracture; Z79.84 Long term (current) use of oral hypoglycemic drugs; Z79.85 Long-term (current) use of injectable non-insulin antidiabetic drugs | CPT/HCPCS: 83036; 96127; 99212 ==

== ENCOUNTER 2025-08-25 08:42 | Outpatient (REF) | payer MEDICARE, MEDICAID, SELFPAY ==
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
--- OUTSIDE RECORDS SUMMARY | 2025-08-25 09:10 | XMS_ITS | Clinical Summary ---
Author Organization [facility] Address [address] [place] [address] Care Team Providers Care Certified Physician'S Assistant Name Role Phone Luis Antonio Cook RD Primary Care Provider [phone] Source Comments PLEASE NOTE, if this patient [...] of Treatment Not on file Insurance [employer] ([facility]) Member Subscriber Plan / Payer (Ef fective 2017-Present) Name:Lula Little I Relation to Subscriber:Self Name:Lula Little I Payer ID:[id number] Group ID:Not on file Type:Indemnity Address: [address] [place] [id number] Care Teams Certified Physician'S Assistant Relationship Specialty Start Date End Date Luis Antonio Cook RD [address] [place] [address] PCP - General Nutrition 01/03/17
[2025-08-25 10:56] LABS: Microalbum/Creatinine Ratio Ur 11.1 ug/mg cr (<30)
[2025-08-25 11:15] LABS: Alanine Aminotransferase 30 U/L (0-31); Albumin Level 4.7 g/dL (3.5-5.0); Alkaline Phosphatase 68 U/L (39-117); Anion Gap 12 (12-20); Aspartate Amino Transferase 26 U/L (5-31); Blood Urea Nitrogen 19 mg/dL (9-16); Calcium 9.5 mg/dL (8.4-10.2); Carbon Dioxide 26 mmol/L (22-29); Chloride 106 mmol/L (96-108); Cholesterol 227 mg/dL (<200); Estimated Glomerular Filt Rate > 60; HDL Cholesterol 41 mg/dL (>40); Potassium 4.1 mmol/L (3.3-5.1); Sodium 140 mmol/L (135-145); Total Protein 7.4 g/dL (6.5-8.0); Triglycerides 249 mg/dL (<150)
[2025-08-28 10:53] LABS: TS Negative Control Passed; TS Panel A 0; TS Panel B 0; TS Positive Control Passed; TSpotTB Negative (Negative)
== END 2025-08-25 08:43 | disposition home or self-care (01) ==
LOC: HO.HMGCLDS 08:42
PROVIDERS: PCP Internal Medicine; Visit Provider Internal Medicine
DX: Z11.1 Encounter for screening for respiratory tuberculosis (principal); E11.9 Type 2 diabetes mellitus without complications; E78.5 Hyperlipidemia, unspecified; E55.9 Vitamin D deficiency, unspecified; R80.9 Proteinuria, unspecified
CPT/HCPCS: 36415; 80053; 80061; 82043; 82306; 82570; 86481

== ENCOUNTER 2025-08-26 14:04 | Outpatient (AMB) | payer MEDICARE, MEDICAID, SELFPAY ==
[2025-08-26 14:12] VITALS: BP 122/80; PULSE 80; TEMP 36.2; O2SAT 99; BMI 25.5
--- NOTE | 2025-08-26 14:12 | AM.OFFVISMDC ---
Intake Vital Signs 08/26/25 14:12 Height 5 ft 2 in Weight 139 lb 8 oz BMI 25.5 BP 122/80 Blood Pressure Location Lt brachial Position Sitting Pulse 80 Pulse Source Pulse Oximeter Temp 97.1 F Temp Source Temporal Artery Scan Pulse Oximetry (%) 99 Oxygen Delivery Method Room Air Intake Visit Reasons: SWV [id number] Allergies acetaminophen (From Percocet) Allergy (Mild, Verified 08/26/25 14:24) Rash ezetimibe Allergy (Mild, Verified 08/26/25 14:24) rash oxycodone (From Percocet) Allergy (Mild, Verified 08/26/25 14:24) Rash Medication List - Last Reconciled 08/26/25 by Shanita Moncada MD albuterol sulfate 90 mcg/actuation (Ventolin HFA) 2 puffs inhalation Q6H PRN 30 days dulaglutide (Trulicity) 0.75 mg (0.5 mL) subcut QWEEK 90 days fenofibrate 54 mg PO DAILY 90 days fluticasone furoate 50 mcg/actuation (Arnuity Ellipta) 1 inh inhalation DAILY 30 days glipizide ER 2.5 mg PO DAILY metformin 500 mg PO BID 90 days nebulizers (AeroEclipse II Nebulizer) As directed pantoprazole 40 mg PO DAILY 90 days rosuvastatin 10 mg PO DAILY 90 days sumatriptan succinate 25 mg PO Q2-4H PRN 30 days HPI HPI Comments History of Present Illness Details The patient is a 64-year-old female presenting for medicare wellness exam. [facility] handed to patient. [place] of care reviewed and updated. Complaints of cough. The patient has a history of dyslipidemia, with recent labs showing a total cholesterol of 227 mg/dL and an LDL of 137 mg/dL. She is currently taking fenofibrate for triglycerides and rosuvastatin. For diabetes management, the patient is on Trulicity. Her last HbA1c was in January, and a ibmcg-vl-ivuu test today was 5.8%. Her medical history is also significant for migraines, for which she takes sumatriptan, and a history of endometriosis. Her last tetanus vaccine was in 2022, and her last mammogram was last year. The patient denies a history of smoking and reports occasional alcohol use. She denies depression. She prepares her own food, manages her own finances, and takes her own medications. [facility] Medical History Hyperlipidemia Glucose intolerance Surgical History History of hysterectomy Family History Father CAD (coronary artery disease) Mother CAD (coronary artery disease) Social History Housing: Apartment Alcohol intake: never Patient Tobacco Use Status: Never used Tobacco e-Cigarette/Vaping Use: Never Used Second Hand Smoke Exposure: No service: No Current occupational status: disabled Cognitive needs: No Hearing needs: No Vision needs: Yes Questionnaire Medicare Wellness Checkup [age] 65-67 What gender do you identify with?: female During the past 4 weeks, how much have you been bothered by emotional problems such as feeling anxious, depressed, irritable, sad or downhearted, and blue?: not at all During the past 4 weeks, has your physical & emotional health limited your social activities with family, friends, neighbors, or groups?: not at all During the past 4 weeks, how much bodily pain have you generally had?: no pain During the past 4 weeks, was someone available to help you if you needed & wanted help?: no, not at all During the past 4 weeks, what was the hardest physical activity you could do for at least 2 minutes?: heavy Can you get to places out of walking distance without help? (For eg., can you travel alone on buses, taxis or drive your car?): Yes Can you go shopping for groceries or clothes without someone's help?: Yes Can you prepare your own meals?: Yes Can you do your housework without help?: Yes Because of any health problems, do you need the help of another person with your personal care needs such as eating, bathing, dressing or getting around the house?: No Can you handle your own money without help?: Yes During the past 4 weeks, how would you rate your health in general?: good During the past 4 weeks how have things been going for you?: good & bad parts about equal Are you having difficulties driving your car?: no Do you always fasten your seat belt when you are in a car?: yes, usually During past 4 weeks, have you been bothered by the following: never: Falling or dizzy when standing up, Sexual problems?, Trouble eating well?, Teeth or denture problems?, Problems using the telephone? and Tiredness or fatigue? Have you fallen 2 or more times in the past year?: No Are you afraid of falling?: No Are you a smoker?: no During the past 4 weeks, how many drinks of wine, beer, or other alcoholic beverages did you have?: 1 drink or less per week Do you exercise for about 20 minutes 3 or more times a week?: yes, some of the time Have you been given information to help with the following?: no: Hazards in your house that might hurt you? and no: Keeping track of your medications? How often do you have trouble taking medicines the way you have been told to take them?: I do not have to take medicine How confident are you that you can control & manage most of your health problems?: somewhat confident What is your race?: or origin or descent Mini Mental State Exam (MMSE) Orientation What is the (year) (season) (date) (day) (month)?: year, season, date, day and month Where are we (state) (county) (town or city) (hospital) (floor)?: state, town or city, hospital/clinic and floor Registration Name of 3 unrelated objects clearly and slowly, then ask patient to repeat all 3 of them. (1st repeat determines score. Make sure they can repeat all three): object 1, object 2 and object 3 Attention & Calculation (CHOOSE ONE) Spell WORLD backwards (DLROW): 5 letters Recall Ask patient to repeat the 3 items from question #3.: object 1, object 2 and object 3 Language Show patient a wristwatch & ask what it is. Repeat for pencil.: watch and pencil Ask the patient to repeat the phrase 'No ifs, ands, or buts' after you.: correct Ask the patient to 'take a piece of paper with their right hand' 'fold paper in half' 'place paper on floor': take paper in right hand, fold paper in half and place paper on floor Print the sentence 'CLOSE YOUR EYES' on a piece. If patient actually closes eyes then score.: followed written direction Give patient a blank piece of paper & ask to write a sentence. Score if it contains a noun & verb.: sentence contains subject and verb Ask patient to copy figure of intersecting pentagons exactly. Score if all 10 angles & 2 intersects are included.: all 10 angles present & 2 are intersected Score Score: 29 Activity of Daily Living Bathing - sponge bath, tub bath or shower: receives no assistance (gets in/out by self, if usual bathing means Dressing - getting clothes from closets & drawers, including inner/outer garments & fasteners.: gets clothes & gets completely dressed without help Toileting - going to the 'toilet room' for urine/bowel elimination & cleaning self/arranging clothes: goes to toilet room, cleans self, arranges clothes without help Transfer: moves in & out of bed and chair without help (may use support object) Continence: controls urination/bowel movements completely by self Feeding: feeds self without help Total Score: 0 Information obtained from: patient Using telephone: independent Traveling: independent Shopping: independent Preparing meals: independent Housework: independent Taking medicine: independent Managing money: independent PHQ-9 Over the last 2 weeks, how often have you been bothered by any of the following problems? 1. Little interest or pleasure in doing things: not at all 2. Feeling down, depressed, or hopeless: not at all 3. Trouble falling or staying asleep, or sleeping too much: not at all 4. Feeling tired or having little energy: not at all 5. Poor appetite or overeating: not at all 6. Feeling bad about yourself - or that you are a failure or have let yourself or your family down: not at all 7. Trouble concentrating on things, such as reading the newspaper or watching television: not at all 8. Moving or speaking so slowly that other people could have noticed. Or the opposite - being so fidgety or restless that you have been moving around a lot more than usual: not at all 9. Thoughts that you would be better off or of hurting yourself in some way: not at all Total score: 0 Depression Screening Interpretation: Negative Depression Screening Done: Yes 54609 - PHQ-9 Billing: Yes Source: Developed by Drs. Chapincito Cruz, Mary Rodriguez, Aditya Akins and colleagues, with an educational justine from [employer]. Physical Exam Vital Signs: Last Vital Signs Temp 97.1 F 08/26/25 14:12 Pulse 80 08/26/25 14:12 BP 122/80 08/26/25 14:12 Pulse Ox 99 08/26/25 14:12 Oxygen Delivery Method Room Air 08/26/25 14:12 BMI result Body Mass Index 25.5 Neuro Romberg Test: Negative Office Procedures Flu Questionnaire Does the patient have a severe egg allergy?: No Does the patient have severe life threatening allergies?: No Does the patient have a fever or illness today?: No Has the patient ever had Guillain-[place] Syndrome?: No Has the patient ever had any past reaction to a flu shot?: No Results AMB Hemoglobin A1c AMB Hemoglobin A1c 5.8 % Last Edit by Smita Munoz CMA on 08/26/25 14:43 Immunizations Fluarix [id number] (PF) 45 mcg (15 mcg x 3)/0.5 mL IM syringe Performing Provider: Shanita Moncada MD [facility] Administered by: Smita Munoz CMA on 08/26/25 14:45 Dose Route Admin Location Dispensed Lot Number Expiration Date NDC I O Psychologist 0.5 mL IM Left Deltoid 0.5 mL [id number] 04/20/26 [id number] [employer] VIS Given Date VIS Provided VIS Publication Date 08/26/25 Single Vaccine 24 Eligibility Eligibility Date Funding Source Not [facility] Eligible 08/26/25 Private Results Reviewed Results Reviewed: Laboratory Last Values Hgb A1c (Clinic) 5.8 % (4.0-6.0) 08/26/25 14:18 Assessment & Plan Assessment & Plan (1) Encounter for Medicare annual wellness exam: Code(s): Z00.00 - Encounter for general adult medical examination without abnormal findings (2) Cough: Code(s): R05.9 - Cough, unspecified (3) Diabetes mellitus: Code(s): E11.9 - Type 2 diabetes mellitus without complications Qualifiers: Diabetes mellitus type: type 2 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 Encounter for general adult medical examination without abnormal findings Z00.00 Repeat in a year. 2.Type 2 diabetes mellitus without complications E11.9 HCC 19 The patient's [id number] HbA1c is 5.8%, indicating good glycemic control. The dose of Trulicity will be increased. Labs will be repeated in 4 months. 3. Acute cough R05.1 The patient reports a cough. A prescription for a cough syrup will be sent. Orders: Orders AMB Hemoglobin A1c Today Z13.9 - Encounter for screening, unspecified Microalbumin, Random (w Creat) 4 Months R80.9 - Proteinuria, unspecified Vitamin D 25-OH Total 4 Months E55.9 - Vitamin D deficiency, unspecified Comprehensive [place]. Panel Fast 4 Months E11.9 - Type 2 diabetes mellitus without complications Lipid Panel 4 Months E78.5 - Hyperlipidemia, unspecified MM tomosynthesis screening BI Today Z12.31 - Encounter for screening mammogram for malignant neoplasm of breast Influenza [id number] Immunization Today Z23 - Encounter for immunization Medications: New simvastatin 5 mg PO BEDTIME 90 tabs 1RF 90 days dulaglutide (Trulicity) 1.5 mg (0.5 mL) subcut QWEEK 2 mL 0RF 4 weeks E11.9 - Type 2 diabetes mellitus without complications Discontinued glipizide ER Discontinued Reason: Patient Completed Course 2.5 mg PO DAILY 90 tabs 0RF E11.9 - Type 2 diabetes mellitus without complications dulaglutide (Trulicity) Discontinued Reason: Patient Completed Course 0.75 mg (0.5 mL) subcut QWEEK 90 days 6.5 mL 1RF fenofibrate Discontinued Reason: Order 54 mg PO DAILY 90 days 90 tabs 1RF metformin Discontinued Reason: Patient Completed Course 500 mg PO BID 90 days 180 tabs 1RF rosuvastatin Discontinued Reason: Patient Completed Course 10 mg PO DAILY 90 days 90 tabs 1RF Quality Reporting (2019) Depression/Bipolar (159/160/161/177) PHQ-9: Total score: 0 Coding Level of Care Code Medicare Subsequent (G0439) Est Pt Level 3 (56425) Diagnoses Encounter for Medicare annual wellness exam Z00.00 Cough R05.9 Type 2 diabetes mellitus without complication, without long-term current use of insulin E11.9 Diabetes mellitus type: type 2 Diabetes mellitus prison insulin use: without local intermodal truck driver use Diabetes mellitus complication status: without complication Additional Codes PHQ-9 - 90157 - PHQ-9 Billing: Yes ([id number]) Time Spent (min) 39 Advance Care Planning Advance Care Planning discussion: Declined forms
--- OUTSIDE RECORDS SUMMARY | 2025-08-26 17:16 | XMS_ITS | Clinical Summary ---
Author Organization [facility] Address [address] [place] [address] Care Team Providers Care Cigar Binder Name Role Phone Luis Antonio Cook RD Primary Care Provider [phone] Source Comments PLEASE NOTE, if this patient [...] of Treatment Not on file Insurance [employer] ([facility]) Member Subscriber Plan / Payer (Ef fective 2017-Present) Name:Lula Little I Relation to Subscriber:Self Name:Lula Little I Payer ID:[id number] Group ID:Not on file Type:Indemnity Address: [address] [place] [id number] Care Teams Cigar Binder Relationship Specialty Start Date End Date Luis Antonio Cook RD [address] [place] [address] PCP - General Nutrition 01/03/17
== END 2025-08-26 14:46 | disposition home or self-care (01) ==
LOC: HO.HMCH 14:05
PROVIDERS: PCP Internal Medicine; Visit Provider Internal Medicine
DX: Z00.00 Encounter for general adult medical examination without abnormal findings (principal); R05.9 Cough, unspecified; E11.9 Type 2 diabetes mellitus without complications; Z23 Encounter for immunization

== ENCOUNTER → 2025-08-26 14:04 | Outpatient (BNVA) | payer MEDICARE, MEDICAID, SELFPAY | PROVIDERS: PCP Internal Medicine; Visit Provider Internal Medicine | DX: Z13.31 Encounter for screening for depression (principal); Z23 Encounter for immunization; Z13.1 Encounter for screening for diabetes mellitus | CPT/HCPCS: 83036; 90471; 90656; 96127 ==